=== PATIENT | male | born 1950 | race Caucasian/White ===

== ENCOUNTER 2021-05-03 15:08 | Emergency (ER) | payer MEDICARE, OTHER, SELFPAY ==
--- NOTE | ~2021-05-03 | XR_ITS ---
EXAMINATION: XR FINGER, LEFT CLINICAL INFORMATION: Laceration to the fourth digit. COMPARISON: None TECHNIQUE: Three views of the left hand fourth digit. FINDINGS: The fourth digit appears intact without acute fracture or dislocation. The soft tissues are unremarkable without without radiopaque foreign body. Mild to moderate interphalangeal and metacarpophalangeal degenerative joint changes are seen in the second and third digits. Moderate first carpometacarpal degenerative joint changes are seen as well. The carpal bones are normally aligned. The distal radius and ulna are intact. XR/XR finger LT min 2V IMPRESSION: 1. No significant acute abnormality in the fourth digit. 2. Degenerative joint changes most consistent with osteoarthritis.
[2021-05-03 15:41] VITALS: BP 170/83; PULSE 67; RESP 18; TEMP 36.6; O2SAT 97; BMI 27.1
--- NOTE | 2021-05-03 16:21 | ED.WOUNDLAC ---
HPI - Wound/Laceration General Chief Complaint: Wound/Laceration Stated Complaint: finger lac Time Seen by Provider: 05/03/21 16:16 History of Present Illness HPI narrative: Patient complains of laceration to left 4th finger, no numbness no weakness no tingling no other injury Related Data Allergies Allergy/AdvReac Type Severity Reaction Status Date / Time No Known Allergies Allergy Verified 05/03/21 15:44 Review of Systems Review of Systems: Positive for left 4th finger laceration Negatives are no numbness no weakness no tingling no joint pains no foreign body sensation no other injury Yes all other systems are reviewed and are negative [facility] Past Medical History Source: nursing notes reviewed Medical History (Updated 05/04/21 @ 00:01 by Background Damax) HTN (hypertension) Social History Social History Advance Directives: No Advance Directives Information Provided: No Physical Exam Vital Signs: Vital Signs: Last Vital Signs Temp 97.9 F 05/03/21 15:41 Pulse 67 05/03/21 15:41 Resp 18 05/03/21 15:41 BP 170/83 H 05/03/21 15:41 Pulse Ox 97 05/03/21 15:41 Body Mass Index 27.1 General appearance no acute distress Head is normocephalic atraumatic Neck is supple Respiratory no distress Extremities full range of motion x4 Left 4th finger has a 1.5 cm subcutaneous laceration to the middle phalanx, all tendon function is normal full extension and flexion, neurovascular intact distal Course Course Course Narrative: 1.5 cm left 4th finger laceration is cleansed and irrigated with normal saline Anesthesia is 6 cc of 1% lidocaine digital block No foreign body identified The wound is closed with 4x5.0 nylon sutures Bleeding is controlled and dressing is applied Discharge Plan Discharge Clinical Impression: Laceration Patient Disposition: Home, Self-Care Additional Instructions: Stitches out 7-10 days You get a tetanus shot Wash with soap and water every day and then reapply bandage when skin is completely dry, change any wet bandage Return any time for redness swelling pain any sign of infection any concerns Interventions: ED Discharge Assessment Last Done: 05/03/21 17:21 Discharge Date/Time: 05/03/21 17:21
[2021-05-03] MEDS: Diphth,Pertus(ACell),Tet Adult 0.5 ML SYRINGE IM (16:28)
[2021-05-03] MEDS: Lidocaine HCl 1 % MPF 5 ML VIAL SUBCUT ×2 (16:29→16:33)
== END 2021-05-03 17:21 | disposition home or self-care (01) ==
PROVIDERS: Emergency Provider Emergency Medicine; PCP Internal Medicine
DX: S61.215A Laceration without foreign body of left ring finger without damage to nail, initial encounter (principal); M79.645 Pain in left finger(s); X58.XXXA Exposure to other specified factors, initial encounter; Y93.9 Activity, unspecified; Y92.9 Unspecified place or not applicable; Y99.9 Unspecified external cause status
CPT/HCPCS: 73140; 90471; 90715; 99283; 99284

== ENCOUNTER 2023-12-22 15:17 | Outpatient (REF) | payer MEDICARE, OTHER, SELFPAY | END 2023-12-22 15:18 | disposition home or self-care (01) | LOC: HO.SH 15:17 | PROVIDERS: Visit Provider Internal Medicine | DX: Z01.118 Encounter for examination of ears and hearing with other abnormal findings (principal); H90.3 Sensorineural hearing loss, bilateral | CPT/HCPCS: 92557; 92567 ==

== ENCOUNTER → 2024-11-28 10:08 | Day surgery (SDC) | payer MEDICARE, OTHER, SELFPAY ==
--- OUTSIDE RECORDS SUMMARY | 2024-11-02 09:00 | XMS_ITS | Patient Health Record ---
Author Organization [facility] Address [address] [place] [address] Care Team Providers Care Distribution Sales Representative Name Role Phone William James MD Primary Care Provider UnavailHieu Santo Unavailable [phone] ALLERGIES No Known Allergies REASON FOR REFERRAL No Information MEDICATIONS Medication SIG (Take, Route, Frequency, Duration) Notes Start Date End Date Status Tamsulosin HCl 0.4 MG TAKE ONE CAPSULE B Y MOUTH DAILY AT BEDTIME Oral for 90 Active ZyrTEC Not-Taking tylenol Active buPROPion HCl ER (XL) 300 MG TAKE ONE TABLET BY MOUTH EVERY MORNING Oral for 90 Active Finasteride 5 MG Oral for 90 A ctive traZODone HCl 50 MG Oral for 90 Active SOCIAL HISTORY Sex Assigned At : Social History Observation Description Sex Assigned At Unknown Alcohol Screen Question Answer Notes Did you have a drink containing alcohol in the p ast year? No Points 0 Interpretation Negative PROBLEMS Problem Type ICD Code Onset Dates Problem Status W/U Status Risk SNOMED Code Notes Problem Encounter for screening for malignant neoplasm of colon (Z12.11) Active confirmed 171598683 Problem Encounter for screening for malignant neoplasm of rectum (Z12.12) Active confirmed Screening fo r malignant neoplasm of rectum (058910551) Problem Long-term use of aspirin therapy (Z79.82) Active confirmed 636541106 Problem Preprocedural examination (Z01.818) Active confirmed 74909146 Problem Change in bowel habits (R19.4) Active confirmed Change in bowel habit (19787312) Problem Colon cancer screening (Z12.11) Active confirmed Colon cancer screening (488805069) Problem Encounter for other preprocedural examination (Z01.818) Active confirmed Pre-procedure evaluation check (303966945) VITAL SIGNS Blood pressure diastolic 00 mm Hg 08/14/2024 Height 72 in 08/14/2024 Blood pressure systolic 00 mm Hg 08/14/2024 Weight 184 lbs 08/14/2024 BMI 24.95 kg/m2 08/14/2024 Encounters Encounter Location Date Provider Diagnosis [facility] [address] [place] [address] 08/14/2024 Hieu Manzanares Change in bowel habi ts R19.4 ; Colon cancer screening Z12.11 and Encounter for other preprocedural examination Z01.818 ASSESSMENTS Encounter Date Diagnosis Assessment Notes Treatment Notes Treatment Clinical Notes 08/14/2024 Colon cancer screening (ICD-10 - Z12.11) 08/14/2024 Change in bowel habits (ICD-10 - R19.4) 08/14/2024 Encounter for other preprocedural examination (ICD-10 - Z01.818) PLAN OF TREATMENT Future Test Test Name Order Date COLONOSCOPY 01/13/2016 COLONOSCOPY 08/14/2024 Next Appt Details Provider Name:Hieu Manzanares , 11/28/2024 11:40:00 AM, [address] [facility] , [place], [place], [id number], Insurance Providers Payer Name Payer Address Payer Phone Subscriber Number Group Number Insured Name Patient Relationship to Insured Coverage Start Date Coverage End Date MEDICARE OF [place] [address] [facility] [place] [address] [id number] JAYESH HERNADEZ Self - patient is the insured [facility] [address] [place] [address] [id number] JAYESH HERNADEZ Self - patient is the insured MEDICAL (GENERAL) HISTORY Medical History History ICD Code Colonoscopy 11-06-2002--WNL Depression Anxiety Denies VA,DM,CVA,Lung disease,renal dise ase Hypertension Seasonal allegeries Negative screening colonoscopy in 03/2016 Surgical History Surgery Date(Month/Year) Hiatal hernia surgery--1979 Both knee replacements--2005 and 2006 Both thumbs/arthritis surgery
--- OUTSIDE RECORDS SUMMARY | 2024-11-02 09:01 | XMS_ITS | Continuity of Care Document ---
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 Name Role Phone William James MD Primary Care Physician Encounter 10/17/24 - 10/18/[address] [address] Attending Physician: Not on Staff, Attending MD Referring Physician: Not on Staff, Referring MD Encounter Type: [facility] Allergies, Adverse Reactions, Alerts No Known Allergies Immunizations Given and Recorded Vaccine Date Status Refusal Reason influenza virus vaccine, inactivated 09/29/23 Give n influenza virus vaccine, inactivated 07/09/22 Marvel rded influenza virus vaccine, inactivated 07/20/21 Marvel rded influenza virus vaccine, inactivated 07/02/20 Marvel rded influenza virus vaccine, inactivated 07/05/19 Marvel rded influenza virus vaccine, inactivated 07/18/17 Marvel rded influenza virus vaccine, inactivated 07/06/16 Marvel rded pneumococcal 20-valent conjugate vaccine 1 03/24/23 Given SARS-CoV-2 (COVID-19) mRNA BNT-162b2 vac 08/15/21 Recorded SARS-CoV-2 (COVID-19) mRNA BNT-162b2 vac 12/15/20 Recorded SARS-CoV-2 (COVID-19) mRNA BNT-162b2 vac 11/21/20 Recorded tetanus/diphtheria/pertussis, acel(Tdap) 05/03/21 Recorded Influenza Virus Vaccine (oldterm) 06/12/19 Recorde d zoster vaccine, inactivated 03/31/18 Recorded zoster vaccine, inactivated 2 12/20/17 Recorded pneumococcal 23-valent vaccine 07/21/16 Given pneumococcal 13-valent vaccine 09/12/14 Recorded 1Result Comment: [id number] 2Location History: DR SOTO Medications barium sulfate 2% oral suspension See Instructions, Please dispense 2- 450ml bottles. Drink first bottle [address] scan. Drink second bottle [address] scan[address] # 2 each, 0 Refills, Maintenance, 01/31/24 3:21:00 PMEDT, [facility], Partial fill upon patient request if the prescription is for a schedule II opioid drug., Please dispense 2- 450ml bottles. ; Drink first bottle [address] scan. Drink second bottle [address] 177.7, cm, 12/30/23 9:08:00 EDT, Height, 86.5, kg, 04/03/22 21:43:00 EDT, Dry Weight Start Date: 01/31/24 Status: Ordered Quantity: 2.0 Unit: each Repeat number: 1 buPROPion 300 mg/24 hours (XL) oral tablet, extended release 1 tablet = 300 mg, By Mouth, Daily, # 30 tablet, 0 Refills, Maintenance, 02/25/21 11:48:00 AM EDT, ER Tablet, Partial fill upon patient request if the prescription is for a schedule II opioid drug. Start Date: 02/25/21 Status: Ordered Quantity: 30.0 Unit: tablet Repeat number: 1 finasteride 5 mg oral tablet 1 tablet = 5 mg, By Mouth, Daily, # 30 tablet, 0 Refills, Maintenance, 09/29/23 9:02:00 AM EST, Tablet, Partial fill upon patient request if the prescription is for a schedule II opioid drug. Start Date: 09/29/23 Status: Ordered Quantity: 30.0 Unit: tablet Repeat number: 1 Fish Oil By Mouth, 0 Refills, Maintenance, 11/09/18 1:58:40 PM EST Start Date: 11/09/18 Status: Ordered Repeat number: 1 Flonase 50 mcg/inh nasal spray 2 sprays, Nares, Both, Daily, 0 Refills, Maintenance, 08/13/19 10:51:00 AM EST, [place] Start Date: 08/13/19 Status: Ordered Repeat number: 1 FLUoxetine 40 mg oral capsule 1 capsule = 40 mg, By Mouth, Daily, 0 Refills, Maintenance, 03/10/22 10:08:00 AM EDT, Partial fill upon patient request if the prescription is for a schedule II opioid drug. Start Date: 03/10/22 Status: Ordered Repeat number: 1 Miscellaneous Rx 0 Refills, Maintenance, Vitamin B Complex, 12/30/23 9:13:00 AM EDT Start Date: 12/30/23 Status: Ordered Repeat number: 1 tamsulosin 0.4 mg oral capsule 0.4 mg, 1, capsule, By Mouth, Daily, # 30 capsule, Refills 0, Maintenance, 11/09/18 1:58:26 PM EST Start Date: 11/09/18 Status: Ordered Quantity: 30.0 Unit: capsule Repeat number: 1 traZODone 150 mg oral tablet 1 tablet = 150 mg, By Mouth, Daily at bedtime, # 30 tablet, 0 Refills, Maintenance, 11/09/18 1:57:40PM EST, Tablet Start Date: 11/09/18 Status: Ordered Quantity: 30.0 Unit: tablet Repeat number: 1 traZODone 50 mg oral tablet 180 each, 0 Refill(s), TAKE 1 OR 2 TABLETS BY MOUTH EVERY EVENING., Refills 0, 03/02/24 10:06:00 AM EDT, Partial fill upon patient request if the prescription is for a schedule II opioid drug. Start Date: 03/02/24 Status: Ordered Repeat number: 1 turmeric = 500 mg, By Mouth, Daily, 0 Refills, Maintenance, 12/30/21 9:53:00 AM EDT, Partial fill upon patient request if the prescription is for a schedule II opioid drug. Start Date: 12/30/21 Status: Ordered Repeat number: 1 Vitamin B12 0 Refills, Maintenance, 11/20/21 10:56:00 AM EST, Partial fill upon patient request if the prescription is for a schedule II opioid drug. Start Date: 11/20/21 Status: Ordered Repeat number: 1 Vitamin D3 2000 intl units oral capsule 1 capsule = 50 mcg, By Mouth, Daily, 0 Refills, Maintenance, 11/20/21 10:56:00 AM EST, Partial fill upon patient request if the prescription is for a schedule II opioid drug. Start Date: 11/20/21 Status: Ordered Repeat number: 1 Vitamin E By Mouth, Daily, 0 Refills, Maintenance, 11/09/18 1:58:34 PM EST Start Date: 11/09/18 Status: Ordered Repeat number: 1 Zinc = 140 mg, By Mouth, Daily, 0 Refills, Maintenance, 08/15/20 8:08:00 AM EST, Partial fill upon patient request if the prescription is for a schedule II opioid drug. Start Date: 08/15/20 Status: Ordered Repeat number: 1 ZyrTEC 10 mg oral tablet 1 tablet = 10 mg, By Mouth, Daily, 0 Refills, Maintenance, 12/30/23 9:13:00 AM EDT, Partial fill upon patient request if the prescription is for a schedule II opioid drug. Start Date: 12/30/23 Status: Ordered Repeat number: 1 Problem List Condition Confirmation Course Effective Dates Status H ealth Status Informant Recovering alcoholic Confirmed Active Allergic rhinitis Confirmed Active Anxiety Confirmed Active BPH (benign prostatic hyperplasia) Confirmed Active Bilateral hearing loss Confirmed Active Cataract 1 Confirmed Active Depression Confirmed Active GERD (gastroesophageal reflux disease) Confirmed Active H/O colonoscopy Confirmed Active Hyperlipidemia Confirmed Active HTN (hypertension) Confirmed Active Impaired fasting glucose Confirmed Active Low back pain Confirmed Active Pulmonary nodule Confirmed Active Osteoarthritis Confirmed Active Overweight Confirmed Active 1LEFT EYE Results Radiology Reports * Exam Date Time Procedure Performing Provider Status 10/17/24 10:43 AM MRI Cervical Spine W/O Contrast Auth (Verified) Notes: (MRI Cervical Spine W/O Contrast) Reason For Exam: radiculopathy left LUE numbness Intermittent Herniated Disc;radiculopathy left LUE numbness Intermittent Herniated Disc RESULT: MRI Cervical Spine W/O Contrast [facility] VISIT NUMBER :[id number] Patient Name: Jayesh Scott Date of : 1950 Date of Exam: 10-17-2024 Referring Physician: Sheela Coombs [address] [address] Exam: MR Cervical Spine (C-) CPT 72710 Room Description: [facility] 1.5 INDICATION: Left upper extremity numbness TECHNIQUE: Multiplanar multisequence MRI of the cervical spine was performed without IV contrast COMPARISON: No prior FINDINGS: There is mild retrolisthesis of C4 on C5, C5 on C6, and C6 on C7. The cervical spine alignment is otherwise maintained. The vertebral body heights are preserved. There are Modic type I endplate marrow changes at C4-C5. The bone marrow signal is otherwise unremarkable. The visualized brain and cervical cord have normal signal intensity. The prevertebral and paraspinal soft tissues are normal. The vertebral artery flow-voids are normal. The thyroid is within normal limits. The craniocervical junction and C1-C2 articulation are preserved. At C2-C3, there is no canal stenosis. There is minimal ligamentum flavum thickening and posterior endplate spurs. There are uncovertebral and facet joint spurs resulting in mild bilateral foraminal stenosis. At C3-C4, there is a minimal disc bulge without canal stenosis. There are uncovertebral and facet joint spurs resulting in moderate left and [id number] right foraminal stenosis. At C4-C5, there are posterior endplate spurs and a mild disc bulge flattening the ventral thecal sac with mild canal stenosis in conjunction with ligamentum flavum thickening. There are uncovertebral and facet joint spurs resulting in severe right and moderate to severe left foraminal stenosis. At C5-C6, there are posterior endplate spurs and a moderate broad-based central disc protrusion without canal stenosis. There is mild remodeling of the ventral cord. There are uncovertebral and facet joint spurs resulting in severe left and ynxm-[id number]-[id number] right foraminal stenosis. At C6-C7, there are posterior endplate spurs and a mild disc bulge as well as mild ligamentum flavum thickening resulting in mild to moderate canal stenosis. There is flattening of the ventral cord. There are uncovertebral and facet joint spurs resulting in severe bilateral foraminal stenosis. At C7-T1, there is no spinal canal stenosis. There is a minimal disc bulge. There are posterior endplate spurs with moderate to severe right and moderate left foraminal stenosis. IMPRESSION: No high-grade canal stenosis in the cervical spine. Multilevel foraminal stenoses as described level by level. No abnormal signal within the cervical cord. Electronically Signed By: Isamar Saunders MD Dictated By: Not on Staff , BEVERLEY CHAUDHARI Dictated Date/Time: 10/17/24 11:34 a Reviewed By: Not on Staff , BEVERLEY CHAUDHARI Signed By: Not on Staff , BEVERLEY CHAUDHARI Signed Date/Time: 10/17/24 11:34 am Transcribed By: TS Transcribed Date/Time: 10/17/24 11:34 am * Exam Date Time Procedure Performing Provider Status 10/17/24 10:43 AM MRI Brain W/O Contrast Au th (Verified) Notes: (MRI Brain W/O Contrast) Reason For Exam: TIA LUE And Left FAcial Numbness Infarction;TIA LUE And Left FAcial Numbness Infarction RESULT: MRI Brain W/O Contrast [facility] VISIT NUMBER :[id number] Patient Name: Jayesh Scott Date of : 1950 Date of Exam: 10-17-2024 Referring Physician: Sheela Coombs [address] [address] Exam: MR Brain (C-) CPT 75140 Room Description: [facility] 1.5 INDICATION: Left upper extremity and left facial numbness TECHNIQUE: Multiplanar multisequence MRI of the brain was performed without IV contrast COMPARISON: No prior FINDINGS: Mild T2 hyperintensities in the ventricular and subcortical white matter are present. The ventricles and sulci are mildly prominent. The midline the structures, main vascular flow voids, and basal cisterns are normal. There is no acute/subacute infarct or hemorrhage. The orbits and globes are unremarkable. The paranasal sinuses and mastoid air cells are clear. There is mild right bowing of the nasal septum. The extracranial soft tissues, calvarium, and skull base are normal. IMPRESSION: No acute/subacute infarct or hemorrhage. Mild nonspecific white matter T2 hyperintensities probably sequela of chronic microangiopathy. Mild global cerebral volume loss. Electronically Signed By: Isamar Saunders MD Dictated By: Not on Staff BEVERLEY MD Dictated Date/Time: 10/17/24 11:28 a Reviewed By: Not on Staff BEVERLEY MD Signed By: Not on Staff BEVERLEY MD Signed Date/Time: 10/17/24 11:28 am Transcribed By: LUCIANA Transcribed Date/Time: 10/17/24 11:28 am Social History Social History Type Response Smoking Status Never (less than 100 in lifetime) entered on: 11/09/18 Sex Sex Representation Male (finding) Patient Care team information Care Team Personnel Name: Stephie Bowden RN Position: [facility] RN Member Role: Primary Care Nurse Name: Mansi Montilla RN Position: S RN Member Role: Primary Care Nurse Name: William James MD Position: [facility] Physician - Primary Care Member Role: PCP Address: [address] [place] [address]- Telecom: Care Team Related Persons Name: FIEANYI SCOTT Name: KAYLI SCOTT Insurance Providers Guarantor name: JAYESH SCOTT Health Plan Information #: 1 Payer: MEDICARE PART B OUTPT Member Number: NA Policy Number: NA Group Number: NA Health Plan Information #: 2 Payer: FAMILIA PIERRE Member Number: NA Policy Number: NA Group Number: NA
--- OUTSIDE RECORDS SUMMARY | 2024-11-02 09:01 | XMS_ITS | Continuity of Care Document ---
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 Name Role Phone Erika CHAUDHARI, William Watson Primary Care Physician [phone] Encounter 10/10/24 - 10/17/24 [facility] [address], [address] [place] [address]- Attending Physician: Francisco Ibarra MD Admitting Physician: Francisco Ibarra MD Referring Physician: Francisco Ibarra MD Encounter Type: OutPatient One Time Allergies, Adverse Reactions, Alerts No Known Allergies [...] pneumococcal 13-valent vaccine 09/12/14 Recorded 1Result Comment: [id number] 2Location History: DR SOTO Medications barium sulfate [...] 0 Refills, Maintenance, 08/13/19 10:51:00 AM EST, [place] Start Date: 08/13/19 Status: Ordered Repeat number: [...] Exam Date Time Procedure Performing Provider Status 10/10/24 1:[address] Chest W/ Contrast Mario Kumar ; Auth (Verified) Notes: (CT Chest W/ Contrast) Reason For Exam: Lung nodule RESULT: CT Chest W/ Contrast CT Chest W/ Contrast INDICATION: Reason: Lung nodule TECHNIQUE: Helical CT scan of the chest with IV contrast, formatted in 3 planes. cc of was administered intravenously. Weight-based protocol was performed using automatic exposure control. COMPARISON: CT abdomen and pelvis of 09/18/2024 FINDINGS: Mascara Molder view findings, lines and tubes: None. Trachea and airways: Patent without evidence of tracheal or endobronchial lesion. Lungs and pleura: There is a 6 mm pleural-based parenchymal nodule in the right upper lobe (image 44 of series 2). There is an 8 mm stable pleural-based nodule in the right base (image 75 of series 2). There is mild particularity in the right middle lobe anteriorly probably fibrosis. Mild reticularartery be in the lateral base is also present probably fibrosis. There is no consolidation. No effusion or pneumothorax. Mediastinum and raul: No mass or hematoma. No mediastinal or hilar lymphadenopathy. No esophageal abnormality. Normal thyroid. Heart: Heart is normal in size. No pericardial effusion. Aorta: No aortic aneurysm. Pulmonary arteries: Normal caliber. No evidence of pulmonary embolism on this study performed without angiographic technique. Chest wall soft tissues: No acute abnormality. Diaphragm: Intact. Upper abdomen: No significant abnormality. Bones: No acute abnormality. IMPRESSION: 8 mm and 6 mm right pleural-based parenchymal nodules. If low risk for malignancy, followup CT at 3-6 months, then consider CT at 18-24 months and if unchanged no further follow-up. If high risk for malignancy, follow-up CT at 3-6 months, then at 18-24 months and if unchanged no further follow-up per Guidelines for Management of Incidental Pulmonary Nodules Detected on CT Images: From the Fleischner Society 2017. WSN: [id number] Ordering Physician: Francisco Ibarra Dictated By: Isamar Saunders MD Dictated Date/Time: 10/10/24 1:35 pm Reviewed By: Isamar Saunders MD Signed By: Isamar Saunders MD Signed Date/Time: 10/10/24 1:35 pm Transcribed By: VANESSA Transcribed Date/Time: 10/10/24 1:26 pm Social History Social History Type Response Smoking Status Never (less than 100 in lifetime) entered on: 11/09/18 Sex Sex Representation Male (finding) Patient Care team information Care Team Personnel Name: Stephie Bowden RN Position: [facility] RN Member Role: Primary Care Nurse Name: Mansi Montilla RN Position: [facility] RN Member Role: Primary Care Nurse Name: William James MD Position: [facility] Physician - Primary Care Member Role: PCP Address: [address] [place] [address]- Telecom: Care Team Related Persons Name: IFEANYI SCOTT Name: KAYLI SCOTT Insurance Providers Guarantor name: JAYESH SCOTT Health Plan Information #: 2 Payer: FAMILIA LAMBERT SUP Member Number: [id number] Policy Number: NA Group Number: NA Health Plan Information #: 1 Payer: MEDICARE PART B OUTPT Member Number: [id number] Policy Number: NA Group Number: NA
--- OUTSIDE RECORDS SUMMARY | 2024-11-02 09:01 | XMS_ITS | Continuity of Care Document ---
Author Organization [facility]tt lt Address [address] [place] [address]- Care Team Providers Care Gas Controller Name Role Phone William James MD Primary Care Physician [phone] Encounter [facility] Date(s): 10/19/24 - 10/26/24 [facility] Adult [address] [place] [address]- Attending Physician: William James MD Encounter Type: Office Visit Allergies, Adverse Reactions, Alerts No Known Allergies [...] pneumococcal 13-valent vaccine 09/12/14 Recorded 1Result Comment: [id number] 2Location History: DR SOTO Medications barium sulfate [...] 0 Refills, Maintenance, 08/13/19 10:51:00 AM EST, [place] Start Date: 08/13/19 Status: Ordered Repeat number: [...] Confirmed Active Overweight Confirmed Active 1LEFT EYE Vital Signs Most recent to oldest [Reference Range]: 1 Height 183 cm (10/19/24 12:59 PM) Weight 79.8 kg (10/19/24 12:59 PM) Oxygen Saturation [94-100 %] 97 % (10/19/24 12:59 PM) Pulse Rate [55-90 bpm] 62 bpm (10/19/24 12:59 PM) Body Mass Index [18.5-24.99 kg/m2] 23.83 kg/m2 (10/19/24 12:59 PM) Blood Pressure [90-138/55-84 mm Hg] 108/ 56mm Hg (10/19/24 12:59 PM) Temperature [96.8-100.4 DegF] 98.1 DegF (10/19/24 12:59 PM) Blood pressure sites Arm, left (10/19/24 12:59 PM) Temperature Route Oral (10/19/24 12:59 PM) Weight Obtained Via Standing scale (10/19/24 12:59 PM) Social History Social History Type Response Smoking Status Never (less than 100 in lifetime) entered on: 11/09/18 Sex Sex Representation Male (finding) Patient Care team information Care Team Personnel Name: Stephie Bowden RN Position: [facility] RN Member Role: Primary Care Nurse Name: Mansi Montilla RN Position: [facility] RN Member Role: Primary Care Nurse Name: William James MD Position: [facility] Physician - Primary Care Member Role: PCP Address: [address] [place] [id number] Telecom: Care Team Related Persons Name: IFEANYI SCOTT Name: KAYLI SCOTT Insurance Providers Guarantor name: JAYESH SCOTT Health Plan Information #: 2 Payer: [employer] Member Number: [id number] Policy Number: NA Group Number: NA Health Plan Information #: 1 Payer: MEDICARE PART B OUTPT Member Number: [id number] Policy Number: NA Group Number: NA
--- OUTSIDE RECORDS SUMMARY | 2024-11-02 09:01 | XMS_ITS ---
Author Organization [facility] Address [address] [place] [id number] Care Team Providers Care Hot Kettle Tender Name Role Phone William aJmes MD Primary Care Provider UnavailHieu Santo Unavailable [phone] ALLERGIES No Known Allergies REASON FOR VISIT Patient presents today for a COLON SCREENING MEDICATIONS Medication SIG (Take, Route, Frequency, Duration) Notes Start Date End Date Status ZyrTEC Not-Taking buPROPion HCl ER (XL) 300 MG TAKE ONE TABLET BY MOUTH EVERY MORNING Oral for 90 Active Finasteride 5 MG Oral for 90 A ctive traZODone HCl 50 MG Oral for 90 Active Tamsulosin HCl 0.4 MG TAKE ONE CAPSULE B Y MOUTH DAILY AT BEDTIME Oral for 90 Active tylenol Active SOCIAL HISTORY Sex Assigned At : Social History Observation Description Sex Assigned At Unknown Alcohol Screen Question Answer Notes Did you have a drink containing alcohol in the p ast year? No Points 0 Interpretation Negative PROBLEMS Problem Type ICD Code Onset Dates Problem Status W/U Status Risk SNOMED Code Notes Problem Change in bowel habits (R19.4) Active confirmed Change in bowel habit (53290980) Problem Colon cancer screening (Z12.11) Active confirmed Colon cancer screening (499577928) Problem Encounter for other preprocedural examination (Z01.818) Active confirmed Pre-procedure evaluation check (044718682) VITAL SIGNS BMI 24.95 kg/m2 08/14/2024 Blood pressure systolic 00 mm Hg 08/14/20 24 Blood pressure diastolic 00 mm Hg 024 Height 72 in 08/14/2024 Weight 184 lbs 08/14/2024 Encounters Encounter Location Date Provider Diagnosis [facility] [address] [place] [address] 08/14/2024 Hieu Manzanares Change in bowel habi ts R19.4 ; Colon cancer screening Z12.11 and Encounter for other preprocedural examination Z01.818 ASSESSMENTS Encounter Date Diagnosis Assessment Notes Treatment Notes Treatment Clinical Notes 08/14/2024 Change in bowel habits (ICD-10 - R19.4) 08/14/2024 Colon cancer screening (ICD-10 - Z12.11) 08/14/2024 Encounter for other preprocedural examination (ICD-10 - Z01.818) PLAN OF TREATMENT Future Test Test Name Order Date COLONOSCOPY 08/14/2024 Next Appt Details Follow Up: prn, Reason: Provider Name:Hieu Manzanares , 11/28/2024 11:40:00 AM, [address] [place] [address] , [place], [place], [id number], Progress Notes * Examination Category Sub-Category Detail Notes General Examination GENERAL APPEARANCE: pleasant , well nourished, well developed, in no acute distress HEAD: EYES: sclera non-icteric EARS: NOSE: THROAT: NECK/THYROID: no cervical lymphade nopathy, neck supple HEART: S1, S2 normal CHEST: LUNGS: clear to auscultatio n bilaterally ABDOMEN: normal bowel sounds, no guarding or rigidity, no guarding or rigidity, no masses palpable, soft, nontender, nondistended NEUROLOGIC: alert and oriented SKIN: nonjaundiced, no spi suzie angiomata EXTREMITIES: no edema PERIPHERAL PULSES: BACK: BREASTS: MUSCULOSKELETAL: MALE GENITOURINARY: LYMPH NODES: RECTAL EXAM: FEMALE GENITOURINARY: ORAL CAVITY: mucosa moist
--- OUTSIDE RECORDS SUMMARY | 2024-11-02 09:01 | XMS_ITS | Continuity of Care Document ---
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 Name Role Phone Erika CHAUDHARI, William Watson Primary Care Physician Encounter [facility] Date(s): 10/16/24 - 10/17/[address] [id number] Discharge Disposition: A-D/C Home Attending Physician: Julio Finley MD Admitting Physician: Malvin CHAUDHARI, Sheela Henriquez Referring Physician: Not on Staff, Referring MD Encounter Type: Disch Obv Allergies, Adverse Reactions, Alerts No Known Allergies [...] pneumococcal 13-valent vaccine 09/12/14 Recorded 1Result Comment: [id number] 2Location History: DR SOTO Medications barium sulfate [...] 0 Refills, Maintenance, 08/13/19 10:51:00 AM EST, [place] Start Date: 08/13/19 Status: Ordered Repeat number: [...] Date Time Procedure Performing Provider Status 10/17/24 9:10 AM US Duplex Cranial Ext Artery Bilat Steven Villarreal; Auth (Verified) Notes: (US Duplex Cranial Ext Artery Bilat) Reason For Exam: stenosis?;Other: RESULT: US Duplex Cranial Ext. Artery BiLat CAROTID DUPLEX ULTRASOUND INDICATION: Reason: Other:; stenosis?; Clinical Question(s): Stenosis; Order Comment: US Duplex Cranial Ext Artery Bilat Prep, Stenosis TECHNIQUE: The bilateral extracranial carotid artery system was evaluated using B-mode, color Doppler, and pulsed Doppler with spectral analysis. The NASCET definition of internal carotid artery stenosis was used. Velocity criteria are based on the Society of Radiologists in Ultrasound consensus panel recommendations 2003. COMPARISON: CTA neck surgery 10/16/2024. FINDINGS: Right carotid: Color and grayscale examination shows small amount of noncalcified plaque at the carotid bifurcation. On pulsed Doppler examination, the peak systolic velocity in the right internal carotid artery is 80 cm/sec, the corresponding end-diastolic velocity is 25 cm/s, and the systolic velocity ratio (ROLDAN/RCCA) is 1.0. Right vertebral artery: Normal antegrade flow. Right subclavian artery: Normal multiphasic flow. Left carotid: Color and grayscale examination shows no significant atherosclerotic plaque, intimal thickening or visible stenosis. On pulsed Doppler examination, the peak systolic velocity in the left internal carotid artery is 76cm/sec, the corresponding end-diastolic velocity is 12.5 cm/s, and the systolic velocity ratio (LICA/LCCA) is 1.1. Left vertebral artery: Normal antegrade flow. Left subclavian artery: Normal multiphasic flow. Incidental findings: None. IMPRESSION: RIGHT SIDE: 1. 1-49% stenosis of the right ICA. 2. The vertebral artery has normal antegrade flow. 3. The subclavian artery has normal multiphasic flow. LEFT SIDE: 1. Normal left internal carotid artery. 2. The vertebral artery has normal antegrade flow. 3. The subclavian artery has normal multiphasic flow. WSN: [id number] Ordering Physician: Sheela Coombs Dictated By: Liang Hayward MD Dictated Date/Time: 10/17/24 10:33 a Reviewed By: Liang Hayward MD Signed By: Liang Hayward MD Signed Date/Time: 10/17/24 10:33 am Transcribed By: VANESSA Transcribed Date/Time: 10/17/24 10:08 am * Exam Date Time Procedure Performing Provider Status 10/16/24 6:08 PM Chest 2 Views Frontal and Lat Santino Carvalho; Auth (Verified) Notes: (Chest 2 Views Frontal and Lat) Reason For Exam: Shortness of Breath RESULT: Chest 2 Views Frontal and Lat Chest 2 Views Frontal and Lat Reason: Shortness of Breath; Clinical Question(s): CHF COMPARISON: 2 priors with the most recent dated 08/13/2019. FINDINGS: LINES AND TUBES: None. LUNGS AND PLEURA: Clear lungs. Normal pulmonary vascularity. No pleural effusion. No pneumothorax. HEART, MEDIASTINUM AND JUANIS: Heart is normal in size. Normal mediastinal and hilar contour. BONES AND SOFT TISSUES: No acute abnormality. IMPRESSION: No acute abnormality. WSN: [id number] Ordering Physician: Zhang Avila Dictated By: Moody Alcazar MD, V Dictated Date/Time: 10/16/24 6:10 pm Reviewed By: Moody Alcazar MD, V Signed By: Moody Alcazar MD, V Signed Date/Time: 10/16/24 6:10 pm Transcribed By: VANESSA Transcribed Date/Time: 10/16/24 6:09 pm * Exam Date Time Procedure Performing Provider Status 10/16/24 4:[address] Angio Neck Hyperacute Stroke Pawan Enamorado; Zuri (Verified) Notes: (CT Angio Neck Hyperacute Stroke) Reason For Exam: Aneurysm, neck vessel(s);Other: RESULT: CT Angio Neck Hyperacute Stroke CT Angio Head Hyperacute Stroke, CT Angio Neck Hyperacute Stroke Hx of Present Illness: L facial numbness, L shoulder arm and hand numbness started 2 2.; Reason: Other:; Stroke; Clinical Question(s): Other:; Hematoma Aneurysm / Other: TECHNIQUE: CT angiogram of the head and neck was performed after bolus administration of intravenous contrast. 75 mL of Isovue 300 was administered intravenously. Coronal and sagittal MIP reformattedimages were obtained. Additional 3-D images were created on a separate workstation under concurrent supervision by the attending radiologist. All stenoses are measured using NASCET criteria. Weight-based protocol using automatic tube modulation was used to optimize exposure parameters. RADIATION DOSE PARAMETERS: CTDIvol Body: 14.44 mGy, DLP Body: 515 mGy*cm. COMPARISON: Noncontrast CT head performed concurrently. FINDINGS: CTA OF THE NECK: Arch: There is a three vessel aortic arch. The origins of the supra aortic vessels are patent. Right carotid system: The common carotid and cervical internal carotid arteries are patent. There is noncalcified atherosclerotic plaque at the carotid bifurcation, but no ICA stenosis (0%) by NASCETcriteria. Left carotid system: The common carotid and cervical internal carotid arteries are patent. No stenosis (0%) by NASCET criteria. There is a right-dominant vertebral artery system. Right vertebral: Patent. Left vertebral: There is moderate to severe narrowing at the origin of the left vertebral artery due to noncalcified plaque. Beyond this, the extracranial vertebral is normal in caliber. Other: Soft tissues and bones: No evidence of lymphadenopathy or mass. The thyroid is unremarkable. Visualized lung apices are clear. Multilevel degenerative changes of the spine are noted, without acute osseous abnormality. CTA OF THE HEAD: Anterior circulation: Minimal calcification is seen along the intracranial ICAs without significantnarrowing. The anterior cerebral arteries are patent and normal in caliber. Bilateral M1 and proximal M2 branches are patent and normal in caliber. Posterior circulation: The vertebral arteries, basilar artery, superior cerebellar arteries, and posterior cerebral arteries are patent with origin of the left AGENCY SALES DIRECTOR. Veins: Nondominant lateral left transverse sinus, sigmoid sinus, and jugular bulb are not opacified, which appears related to the phase of injection. Remaining major dural venous sinuses are patent. Other: Soft tissues and bones: No midline shift or effacement of the basal cisterns. No space-occupying hemorrhage. No acute territorial loss of greenwood-white matter differentiation. Orbits are unremarkable. No significant opacification in the paranasal sinuses or mastoid air cells. IMPRESSION: 1. No proximal occlusion or high grade stenosis in the [place] of [place]. 2. Moderate to severe narrowing of the left vertebral artery origin. 3. No significant stenosis in the cervical carotids. WSN: [id number] Ordering Physician: Zhang Avila Dictated By: Lynsey Murillo MD Dictated Date/Time: 10/16/24 5:16 pm Reviewed By: Lynsey Murillo MD Signed By: Lynsey Murillo MD Signed Date/Time: 10/16/24 5:16 pm Transcribed By: VANESSA Transcribed Date/Time: 10/16/24 4:34 pm * Exam Date Time Procedure Performing Provider Status 10/16/24 4:[address] Angio Head Hyperacute Stroke Pawan Enamorado; Zuri (Verified) Notes: (CT Angio Head Hyperacute Stroke) Reason For Exam: Stroke;Other: RESULT: CT Angio Head Hyperacute Stroke CT Angio Head Hyperacute Stroke, CT Angio Neck Hyperacute Stroke Hx of Present Illness: L facial numbness, L shoulder arm and hand numbness started 2 2.; Reason: Other:; Stroke; Clinical Question(s): Other:; Hematoma Aneurysm / Other: TECHNIQUE: CT angiogram of the head and neck was performed after bolus administration of intravenous contrast. 75 mL of Isovue 300 was administered intravenously. Coronal and sagittal MIP reformattedimages were obtained. Additional 3-D images were created on a separate workstation under concurrent supervision by the attending radiologist. All stenoses are measured using NASCET criteria. Weight-based protocol using automatic tube modulation was used to optimize exposure parameters. RADIATION DOSE PARAMETERS: CTDIvol Body: 14.44 mGy, DLP Body: 515 mGy*cm. COMPARISON: Noncontrast CT head performed concurrently. FINDINGS: CTA OF THE NECK: Arch: There is a three vessel aortic arch. The origins of the supra aortic vessels are patent. Right carotid system: The common carotid and cervical internal carotid arteries are patent. There is noncalcified atherosclerotic plaque at the carotid bifurcation, but no ICA stenosis (0%) by NASCETcriteria. Left carotid system: The common carotid and cervical internal carotid arteries are patent. No stenosis (0%) by NASCET criteria. There is a right-dominant vertebral artery system. Right vertebral: Patent. Left vertebral: There is moderate to severe narrowing at the origin of the left vertebral artery due to noncalcified plaque. Beyond this, the extracranial vertebral is normal in caliber. Other: Soft tissues and bones: No evidence of lymphadenopathy or mass. The thyroid is unremarkable. Visualized lung apices are clear. Multilevel degenerative changes of the spine are noted, without acute osseous abnormality. CTA OF THE HEAD: Anterior circulation: Minimal calcification is seen along the intracranial ICAs without significantnarrowing. The anterior cerebral arteries are patent and normal in caliber. Bilateral M1 and proximal M2 branches are patent and normal in caliber. Posterior circulation: The vertebral arteries, basilar artery, superior cerebellar arteries, and posterior cerebral arteries are patent with origin of the left AGENCY SALES DIRECTOR. Veins: Nondominant lateral left transverse sinus, sigmoid sinus, and jugular bulb are not opacified, which appears related to the phase of injection. Remaining major dural venous sinuses are patent. Other: Soft tissues and bones: No midline shift or effacement of the basal cisterns. No space-occupying hemorrhage. No acute territorial loss of greenwood-white matter differentiation. Orbits are unremarkable. No significant opacification in the paranasal sinuses or mastoid air cells. IMPRESSION: 1. No proximal occlusion or high grade stenosis in the [place] of [place]. 2. Moderate to severe narrowing of the left vertebral artery origin. 3. No significant stenosis in the cervical carotids. WSN: [id number] Ordering Physician: Zhang Avila Dictated By: Lynsey Murillo MD Dictated Date/Time: 10/16/24 5:16 pm Reviewed By: Lynsey Murillo MD Signed By: Lynsey Murillo MD Signed Date/Time: 10/16/24 5:16 pm Transcribed By: VANESSA Transcribed Date/Time: 10/16/24 4:34 pm * Exam Date Time Procedure Performing Provider Status 10/16/24 4:[address] Head-Hyper Acute Stroke Giovanny Enamorado darriusnahun; Auth (Verified) Notes: (CT Head-Hyper Acute Stroke) Reason For Exam: Neuro deficit, acute, stroke suspected;Other: RESULT: CT Head-Hyper Acute Stroke CT Head-Hyper Acute Stroke INDICATION: Hx of Present Illness: L facial numbness, L shoulder arm and hand numbness started 2 2.; Reason: Other:; Neuro deficit, acute, stroke suspected; Clinical Question(s): Other:; Hematoma Infarction TECHNIQUE: Noncontrast head CT using axial technique and reconstructed in axial and coronal planes.Iterative reconstruction techniques are used to optimize dose and image quality. COMPARISON: MRI brain 07/20/2016 FINDINGS: Chicken Dresser view findings, lines and tubes: None. BRAIN AND EXTRA-AXIAL SPACES: No parenchymal hemorrhage, midline shift, or mass effect. Greenwood-white matter differentiation is wellpreserved. No acute infarct. Mild prominence of the ventricles and sulci consistent with parenchymal volume loss. Mild low-density white matter changes. No subarachnoid hemorrhage. No subdural or epidural collection. CALVARIUM, SKULL BASE, AND SOFT TISSUES: No fractures or suspicious bony lesions. The paranasal sinuses and mastoid air cells are clear. Visualized orbits and globes are intact. The extracranial soft tissues are unremarkable. IMPRESSION: No evidence of acute intracranial abnormality. WSN: [id number] Ordering Physician: Zhang Avila Dictated By: Moisés Hickman MD Dictated Date/Time: 10/16/24 4:09 pm Reviewed By: Moisés Hickman MD Signed By: Moisés Hickman MD Signed Date/Time: 10/16/24 4:09 pm Transcribed By: VANESSA Transcribed Date/Time: 10/16/24 4:07 pm Vital Signs Most recent to oldest [Reference Range]: 1 2 3 Height 183 cm (10/16/24 10:55 PM) 183 cm (10/16/24 6:02 PM) 183 cm (10/16/24 4:19 PM) Weight 81.7 kg (10/16/24 10:55 PM) 82.9 kg (10/16/24 6:02 PM) 82.9 kg (10/16/24 4:19 PM) Oxygen Saturation [94-100 %] 96 % (10/17/24 11:00 AM) 97 % (10/17/24 8:00 AM) 96 % (10/16/24 6:02 PM) Pulse Rate [55-90 bpm] 56 bpm (10/17/24 11:00 AM) 59 bpm (10/17/24 8:00 AM) 56 bpm (10/16/24 10:55 PM) Body Mass Index [18.5-24.99 kg/m2] 24.4 kg/m2 (10/16/24 10:55 PM) 24.75 kg/m2 (10/16/24 6:02 PM) 24.75 kg/m2 (10/16/24 4:19 PM) Blood Pressure [90-138/55-84 mm Hg] 136/71mm Hg (10/17/24 11:00 AM) 121/69mm Hg (10/17/24 8:00 AM) 129/64mm Hg (10/16/24 10:55 PM) Respiratory Rate [16-30 br/min] 16 br/min (10/17/24 11:00 AM) 16 br/min (10/17/24 8:00 AM) 18 br/min (10/16/24 10:55 PM) Temperature [96.8-100.4 DegF] 98.1 DegF (10/17/24 11:00 AM) 98.7 DegF (10/17/24 8:00 AM) 97.9 DegF (10/16/24 10:55 PM) Mode of Delivery (Oxygen) Room air (10/17/24 11:00 AM) Room air (10/17/24 8:00 AM) Room air (10/16/24 6:02 PM) Blood pressure sites Arm, right (10/17/24 11:00 AM) Arm, right (10/17/24 8:00 AM) Arm, right (10/16/24 10:55 PM) Temperature Route Oral (10/17/24 11:00 AM) Oral (10/17/24 8:00 AM) Oral (10/16/24 10:55 PM) Dry Weight 81.7 kg (10/16/24 10:55 PM) 82.9 kg (10/16/24 6:02 PM) 82.9 kg (10/16/24 4:19 PM) Weight Obtained Via Standing scale (10/16/24 3:48 PM) Dry Weight Obtained Via Standing scale (10/16/24 3:48 PM) Social History Social History Type Response Smoking Status Never (less than 100 in lifetime) entered on: 11/09/18 Sex Sex Representation Male (finding) Admission evaluation note * Malvin CHAUDHARI, Sheela Henriquez: PERFORM Event Display: Admission Note Authored Date: [id number] Patient: ??JAYESH SCOTT ? Age:??74 Years?Sex:??Male?:??1950?? History of Present Illness 73-year-old male with past medical history of hyperlipidemia, BPH, depression, hypertension, anxiety who presented to ED with left upper extremity and facial numbness. ?? Patient presented with??2 days still left upper extremity and facial numbness.?May be very mild weakness on the left upper extremity??but his symptoms are intermittent??that started last Tuesday.?Also reports having??minutes when he had a CT scan??he associates it with position change.?He has been suffering from the left shoulder arthritis which he had??steroid injection??last .?Although??his shoulder pain is slightly getting better.?Patient denies significant neck pain, headache, chest pain, palpitation, shortness of breath, lower extremity weakness, dysuria,??urinary or stool incontinence. ?? 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 ?? ED course remarkable for BP 150/90, on room air saturating 95, afebrile, heart rate 65 CBC unremarkable BMP grossly unremarkable High sensitive troponin 12 Patient was given aspirin [address] head hyperacute without acute abnormality CT angio head and neck 1. No proximal occlusion or high grade stenosis in the [place] of [place]. 2.?? Moderate to severe narrowing of the left vertebral artery origin. 3.?? No significant stenosis in the cervical carotids. Review of Systems None except as above Objective Vital Signs?? Temperature: 98.1 DegF (10/16/24 16:19:00) Temperature Route: Oral (10/16/24 16:19:00) Pulse Rate: 75 bpm (10/16/24 18:02:00) Respiratory Rate: 18 br/min (10/16/24 18:02:00) Systolic Blood Pressure:??179 mm Hg??High (10/16/24 18:02:00) Diastolic Blood Pressure: 65 mm Hg (10/16/24 18:02:00) Blood pressure sites: Arm, left (10/16/24 18:02:00) Mean Arterial Pressure: 103 mm Hg (10/16/24 18:02:00) Pulse Pressure: 114 mm Hg (10/16/24 18:02:00) Oxygen Saturation: 96 % (10/16/24 18:02:00) Mode of Delivery (Oxygen): Room air (10/16/24 18:02:00) ?? Physical Exam Gen-slightly restless/anxious , not in acute distress,comfortably lying on bed, speaking in full sentences. HEENT- Normocephalic, Atraumatic, No pallor, icterus Neck-supple, no JVD Heart-S1S2(+),??regular, no murmurs. lungs- Clear, b/l air entry, no wheezing. Abdomen-soft, nontender,nondistended,??bowel sounds present, No guarding. Extremities-pulses palpable. No pedal edema. No calf tenderness. Neurological- AAO??3. No gross focal neurological deficits noted. Psychiatric-patient???s mood is stable. Assessment/Plan Diagnoses BPH (benign prostatic hyperplasia) ??(N40.0) Depression with anxiety ??(F41.8) Left upper extremity numbness ??(R20.0) Stenosis of left vertebral artery ??(I65.02) 1. ??Left facial numbness ??(R20.0) ?? Assessment:??73-year-old male with past medical history of hyperlipidemia, BPH, depression, hypertension, anxiety who presented to ED with left upper extremity and facial numbness. ?? BPH (benign prostatic hyperplasia) (N40.0):??Continue tamsulosin and finasteride ?? Depression with anxiety (F41.8):??Patient takes??bupropion,??fluoxetine, trazodone He reported taking trazodone to 250 mg which is above??the??recommended dose,??will continue 150 mgdaily ?? 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 Patient presented with??left upper extremity??numbness??as well as the left facial numbness??also questions may be very mild weakness??although no remarkable physical??exam findings.?He has been having the symptoms intermittently since last??Tuesday, he is OOW for??tPA.?Patient was as ymptomatic on my exam,??initial CT head without acute stroke.??CT angio head and neck showed moderate to severe narrowing of the left vertebral artery origin. Patient passed bedside swallow eval. ?? Plan: Patient was loaded with aspirin, continue 81 mg daily Neurochecks every 4 hours conveyor monitor?? Duplex??carotid bilateral ordered MRI brain and cervical??without contrast ordered Appreciate neurology follow-up and recommendations A1c and lipid panel added on ?? VTE Prophylaxis:??Lovenox subcu ?VTE Prophylaxis Assessment:??VTE Prophylaxis Ordered ?? Discharge Planning:??Pending clinical course ?? Ongoing Medical Necessity:??Left upper extremity and facial numbness,???TIA,??CVA rule out ?? Code Status:??Full code ?Order Code Status:??Code Status Ordered ?? Pt is seen on 10/16/2024 ?? I spent a total of??60 minutes in patient care that includes??reviewing the chart and medical records, speaking with the patient, examining the patient, interpreting labs/imaging/ekg, formulating anddiscussing the treatment plan, counseling the patient, placing orders, communicating with??consultants and nurses??and documenting the encounter. ?? Please note that I have used Whistleation system to??transcribe??this note and it may contain unintentional errors. Please feel free to contact me for any clarification. ?? Estimated Discharge Date ? Histories Allergies Allergies ?(Active and Proposed Allergies Only) NKA? (Severity: Unknown severity, Onset: Unknown) ? Past Medical History/Problem List Active Problems(16) Allergic rhinitis Anxiety Bilateral hearing loss BPH (benign prostatic hyperplasia) Cataract Depression GERD (gastroesophageal reflux disease) H/O colonoscopy HTN (hypertension) Hyperlipidemia Impaired fasting glucose Low back pain Osteoarthritis Overweight Pulmonary nodule Recovering alcoholic ? Past Surgical History Hiatal hernia History of bilateral total knee replacement Nasal polypectomy Deviated nasal septum ? Social History Alcohol Details:??Use: Past. 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 Exercise Details:??Self assessment: Good condition. ??Regular exercise: No. Home/Environment Details:??Other: [place]. Details:??Living situation: Home/Independent. ??Lives with: Spouse. Details:??Living situation: Home/Independent. ??Lives with: Spouse. Nutrition/Health Details:??Diet: Regular. ??Caffeine intake amount: 1 cup of coffee qd. Other Details:??Name: Davidson Fernandez. Substance Abuse Details:??Use: Never. Tobacco Details:??Use: Never (less than 100 in lifetime). ? Family History Mother??(): Hypertension; Osteoporosis ? Medications Home Medications Barium Sulfate (barium sulfate 2% oral suspension)??See Instructions Please dispense 2- 450ml bottles. Drink first bottle [address] scan.Drink second bottle [address] scan. BuPROpion (buPROPion 300 mg/24 hours (XL) oral tablet, extended release)??1 tab(s) 300 Milligram ByMouth Daily Cetirizine (ZyrTEC 10 mg oral tablet)??1 tab(s) 10 Milligram By Mouth Daily Cholecalciferol (Vitamin D3 2000 intl units oral capsule)??1 capsule 50 Microgram By Mouth Daily Finasteride (finasteride 5 mg oral tablet)??1 tab(s) 5 Milligram By Mouth Daily Fluoxetine (FLUoxetine 40 mg oral capsule)??1 capsule 40 Milligram By Mouth Daily Fluticasone Nasal (Flonase 50 mcg/inh nasal spray)??2 spray(s) Nares, Both Daily Miscellaneous Rx??Vitamin B Complex Roberts-3 Polyunsaturated Fatty Acids (Fish Oil)??By Mouth Tamsulosin (tamsulosin 0.4 mg oral capsule)??0.4 Milligram 1 capsule By Mouth Daily Trazodone (traZODone 150 mg oral tablet)??1 tab(s) 150 Milligram By Mouth Daily at bedtime Trazodone (traZODone 50 mg oral tablet)??180 each, 0 Refill(s), TAKE 1 OR 2 TABLETS BY MOUTH EVERY EVENING. turmeric??500 Milligram By Mouth Daily Vitamin E??By Mouth Daily Zinc Sulfate (Zinc)??140 Milligram By Mouth Daily ? Inpatient Medications Medications (17) Active SCHEDULED: (9) Aspirin 81 mg EC Tablet (aspirin 81 mg oral delayed release tablet) ??81 mg, By Mouth, Daily BuPROPion XL 150 mg Tablet (BuPROpion XL Tablet) ??300 mg, By Mouth, Daily Enoxaparin 40 mg Inj (Enoxaparin Inj) ??40 mg 0.4 mL, Subcutaneous Injection, Daily Finasteride 5 mg Tablet (finasteride 5 mg oral tablet) ??5 mg, By Mouth, Daily Fluoxetine 20 mg Capsule (FLUoxetine 20 mg oral capsule) ??40 mg, By Mouth, Daily NaCl 0.9% Flush 3ml (NaCL 0.9% Flush) ??3 mL, IV Push, Every 8 hours Tamsulosin 0.4 mg Capsule (tamsulosin 0.4 mg oral capsule) ??0.4 mg, By Mouth, Daily Trazodone 50 mg Tablet (traZODone 50 mg oral tablet) ??150 mg, By Mouth, Daily at bedtime Vitamin D 1000 IU Tablet (cholecalciferol 1000 intl units oral tablet) ??2,000 International_Units,By Mouth, Daily CONTINUOUS: (0) PRN: (8) Acetaminophen 325 mg Tablet (Acetaminophen Tablet) ??650 mg, By Mouth, Every 4 hours Dextromethorphan-Guaifenesin 20 mg-200 mg/10 mL Liqu UD (Robitussin DM Liquid) ??10 mL, By Mouth, Every 4 hours Docusate Sodium 100 mg Capsule (Docusate Sodium Capsule) ??100 mg 1 capsule, By Mouth, 2 times a day Melatonin 3 mg Tablet (Melatonin Tablet) ??3 mg, By Mouth, Daily at bedtime NaCl 0.9% Flush 3ml (NaCL 0.9% Flush) ??3 mL, IV Push, Every 8 hours Polyethylene Glycol 17 Gm Powder (MiraLax Powder) ??17 Gm 1 pack/packet, By Mouth, Daily Senna Tablet ??8.6 mg 1 tablet, By Mouth, 2 times a day Simethicone 80 mg Chewable Tablet (Simethicone Tablet) ??80 mg, Chew, 3 times a day ? Results Recent Labs BLOOD COUNT & DIFF WBC 8.1 k/mm3 ()?? 10/16/2024 16:03 RBC 5.02 m/mm3 ()?? 10/16/2024 16:03 Hgb 16.6 Gm/dL ()?? 10/16/2024 16:03 Hct 45.9 % ()?? 10/16/2024 16:03 MCV 91.4 femtoliters ()?? 10/16/2024 16:03 MCH 33.1 pg ()?? 10/16/2024 16:03 MCHC 36.2 Gm/dL ()?? 10/16/2024 16:03 Platelet Count 278 k/mm3 ()?? 10/16/2024 16:03 RDW-SD 38.6 femtoliters ()?? 10/16/2024 16:03 MPV 8.7 femtoliters (Low)?? 10/16/2024 16:03 Nucleated RBC (Automated) 0.0 #/100 WBC'S ()?? 10/16/2024 16:03 Abs. NRBC 0.0 k/mm3 ()?? 10/16/2024 16:03 Abs. Neut 5.1 k/mm3 ()?? 10/16/2024 16:03 Abs. Lymph 1.9 k/mm3 ()?? 10/16/2024 16:03 Abs. Stanley 1.0 k/mm3 ()?? 10/16/2024 16:03 Abs. Eo 0.1 k/mm3 ()?? 10/16/2024 16:03 Abs. Baso 0.1 k/mm3 ()?? 10/16/2024 16:03 Neut % 62.1 % ()?? 10/16/2024 16:03 Lymph % 23.1 % ()?? 10/16/2024 16:03 Stanley % 12.1 % (High)?? 10/16/2024 16:03 Eos % 1.6 % ()?? 10/16/2024 16:03 Baso % 0.9 % ()?? 10/16/2024 16:03 Imm Gran 0.2 % ()?? 10/16/2024 16:03 Abs. Imm Gran 0.0 k/mm3 ()?? 10/16/2024 16:03 ?? CARDIAC High Sensitivity Troponin (HSTnT) 12 ng/L ()?? 10/16/2024 16:03 ?? CHEM GENERAL Sodium 139 mmol/L ()?? 10/16/2024 16:03 Potassium 4.3 mmol/L ()?? 10/16/2024 16:03 Chloride 99 mmol/L ()?? 10/16/2024 16:03 Bicarbonate Level 25 mmol/L ()?? 10/16/2024 16:03 Anion Gap 15 mmol/L ()?? 10/16/2024 16:03 Glucose Level 93 mg/dL ()?? 10/16/2024 16:03 Glucose, POC 85 mg/dL ()?? 10/16/2024 16:00 BUN 30 mg/dL (High)?? 10/16/2024 16:03 Creatinine-Blood 0.95 mg/dL ()?? 10/16/2024 16:03 Estimated GFR Creatinine 85 ML/MIN/1.73 M2 ()?? 10/16/2024 16:03 Calcium 9.3 mg/dL ()?? 10/16/2024 16:03 Protein, Total 7.2 Gm/dL ()?? 10/16/2024 16:03 Albumin 4.6 Gm/dL ()?? 10/16/2024 16:03 AG Ratio 1.8 ()?? 10/16/2024 16:03 Alkaline Phosphatase 110 units/L ()?? 10/16/2024 16:03 AST (SGOT) 17 units/L ()?? 10/16/2024 16:03 ALT (SGPT) 17 units/L ()?? 10/16/2024 16:03 Bilirubin, Total 0.5 mg/dL ()?? 10/16/2024 16:03 ?? HEME OTHER Hold Blue Top SPECIMEN DISCARDED AFTER 4 HOURS. ()?? 10/16/2024 16:03 ?? MISC. CHEMISTRY Hold Gel Top SPECIMEN DISCARDED AFTER 1 WEEK ()?? 10/16/2024 16:03 Hold Greenwood Top SPECIMEN DISCARDED AFTER 1 WEEK ()?? 10/16/2024 16:03 ?? URINE OTHER Est Creatinine Clearance 76.12 mL/min ()?? 10/16/2024 16:26 ? Abnormal Labs ?? BLOOD COUNT & DIFF Abs. NRBC?0.0 k/mm3 ()?10/16/2024 16:03 Abs. Imm Gran?0.0 k/mm3 ()?10/16/2024 16:03 Imm Gran?0.2 % ()?10/16/2024 16:03 MPV?8.7 femtoliters (Low)?10/16/2024 16:03 Stanley %?12.1 % (High)?10/16/2024 16:03 Nucleated RBC (Automated)?0.0 #/100 WBC'S ()?10/16/2024 16:03 RDW-SD?38.6 femtoliters ()?10/16/2024 16:03 ?? CARDIAC High Sensitivity Troponin (HSTnT)?12 ng/L () ?10/16/2024 16:03 ?? CHEM GENERAL AG Ratio?1.8 ()?10/16/2024 16:03 BUN?30 mg/dL (High)?10/16/2024 16:03 Estimated GFR Creatinine?85 ML/MIN/1.73 M2 ()?10/16/2024 16:03 ?? HEME OTHER Hold Blue Top?SPECIMEN DISCARDED AFTER 4 HOURS. ()?10/16/2024 16:03 ?? MISC. CHEMISTRY Hold Gel Top?SPECIMEN DISCARDED AFTER 1 WEEK ()?10/16/2024 16:03 Hold Greenwood Top?SPECIMEN DISCARDED AFTER 1 WEEK ()?6:03 ?? Note: Critical results are displayed in red. ? Urinalysis Est Creatinine Clearance: 76.12 mL/min (16:26) ?? Blood Gases?? No qualifying data available. ? Hospital Progress note * Cecily Lebron RN: PERFORM, SIGN, VERIFY Event Display: Progress Note Hospital Authored Date: Patient: JAYESH SCOTT Age: 74 years Sex: Male : 1950 Associated Diagnoses: None Author: Cecily Lebron RN Findings Problem Related to Alteration in Neurological : Alteration in Neurological Function/new 10/17/2024 8:00 EST Alteration in Neuro status Related to Acute Stroke (CVA), Other: CVA/Stroke r/o Goals & Outcomes, Neurological Lab studies/diagnostic tests within pt specific limits, Pt is safe with transfers & activities, Pt will be hemodynamically stable, Pt will be Neurologically stable, Pt will maintain intact skin integrity, Pt will remain free from injury, Pt will resume/maintain adequate cardiac output, Pt will state importance of adhering to medication regime, Pt/caregiver will receive psychosocial support as needed, Pt/caregiver will state strategies to reduce risk factors, Pt/caregiver will state understanding of disease process, Pt/caregiver will state understanding of plan/goals of care, Pt will demonstrate safe transfers, Pt will be without signs of aspiration Interventions, Neurological Assess/monitor neurologic status, Assess/monitor VS per unit standards & prn, Collaborate with provider re: medication regime, Assess/monitor facial symmetry and tongue deviation, Communicate oral intake orders/status to pt/s.o, Consult Speech Therapy as needed, DVT prophylaxis as ordered, Maintain oral suction at bedside, Teach Pt/caregiver how to transfer position safely, Teach Pt/caregiver signs indicative of stroke Goals/Interventions, Neurological Yes Neurological, Problem Start 10/17/2024 8:00 Reviewed plan with, Neurological Patient Patient Progression, Neurological Pt progressing according to plan . Alteration in Safety : Alteration in Safety/new 10/17/2024 8:00 EST Alteration in Safety Related to Other: CVA r/o, weakness Goals & Outcomes, Safety Pt/caregiver will state understanding of plan/goals of care, Pt will remain safe & injury free, Pt/caregiver will be offered appropriate resources & support Interventions, Safety Provide teaching as needed Goals/Interventions, Safety Yes Safety, Problem Start 10/17/2024 8:00 Reviewed plan with, Safety Patient Patient Progression, Safety Plan Initiation Comment: Safety fall prevention interventions and education. purposeful rounding. . Falls Risk Assessment : Falls Data 10/17/2024 8:00 EST Fall Elimination No impairment Fall Agitation/Anxiety/Depression No impairment Fall Related Sign/Symptom/Condition None Fall Cognitive Limitations No impairment Fall Sensory and Physical Function Requires Staff Assistance with Transfer Plan: Fall Sensory and Physical Function Encourage safe activities to maintain strength & mobility, Ask family to encourage safe activities, Monitor patient's progress with physical activities Fall High Risk for Injury None of the above Total Falls Risk Score 3 Fall Risk Level Low Risk Falls Prevention Plan for Low Risk Bed in lowest locked position, Place personal care items & call weir within reach, Instruct patient/family to request assistance with ambulatio, Instruct patient/family not to get up without assistance, Supervise the patient when ambulating or making transfers, Check that needs are met to minimize attempts to get up, Hourly rounds, Ensure safe & uncluttered environment, Communicate falls risk to all providers, Consider consult with Geriatric Team as appropriate . Nursing Data Cardiac Data. : Cardiac Data. 10/17/2024 8:00 EST Nail Bed Color, Fingers [place] Skin Temperature Upper Extremities Warm Skin Temperature Lower Extremities Warm Heart Sounds S1, S2 Heart Rhythm Regular Pacemaker No Cardiac Rhythm Normal sinus rhythm, Sinus bradycardia Cardiac Rhythm Normal sinus rhythm, Sinus bradycardia child monitor Yes Cardiovascular WNL Cardiovascular WNL except 10/17/2024 6:39 EST Hgb 15.8 Gm/dL Hct 44.0 % . IV Lines. : IV Lines. 10/17/2024 14:00 EST Right Antecubital 20 gauge Peripheral IV Activity: Discontinue Peripheral IV Assess Compare Touch: A/C/T Done, line D/C'd and or pt discharged Peripheral IV D/C Date/Time: 10/17/2024 14:40 Peripheral IV D/C Reason: Discontinued treatment complete Peripheral IV Post-Removal: Dry sterile dressing applied . Neurological Data. : Neurological Data. 10/17/2024 12:00 EST Neurological Assessment Status Unchanged from recorder's assessment 10/17/2024 8:00 EST Tongue Disposition Midline Neurological Symptoms Numbness Level of Consciousness Full Consciousness Orientated to person, place, time Person, Place, Time, Event Orientated to person, place, time Person, Place, Time, Event Hallucinations None Facial Symmetry Symmetric Facial Symmetry Intact Characteristics of Speech Clear and normal Characteristics of Speech Clear and normal Swallowing Difficulty None Pupil description, left Regular Pupil description, right Regular Strength LUE 5-Active movement against gravity & full resistance Strength RUE 5-Active movement against gravity & full resistance Strength LLE 5-Active movement against gravity & full resistance Strength RLE 5-Active movement against gravity & full resistance Tone LUE Normal Tone RUE Normal Tone LLE Normal Tone RLE Normal Sensation LUE Diminished Sensation RUE Intact Sensation LLE Intact Sensation RLE Intact Movement LUE Spontaneous Movement RUE Spontaneous Movement LLE Spontaneous Movement RLE Spontaneous Gait Steady Neuro WNL except Neuro WNL except Eyes and Movements Conjugate gaze: Move in same direction at same speed Memory Intact Swallow - Neuro Normal . Vital Signs : VITAL SIGNS SECTION 10/17/2024 11:00 EST Temperature 98.1 DegF Temperature Route Oral Pulse Rate 56 bpm Respiratory Rate 16 br/min Systolic Blood Pressure 136 mm Hg Diastolic Blood Pressure 71 mm Hg Blood pressure sites Arm, right Pulse Pressure 65 mm Hg Oxygen Saturation 96 % Mode of Delivery (Oxygen) Room air . Evaluation Patient able to make needs known throughout shift. Safety maintained with fall prevention interventions and education. Patient qualifies as a fall risk,, low. Declined falls interventions such as bedor tab alarms. NSR in telemetry, at times HR in the 50's for brief periods. Unremarkable neuro assessments aside from the numbness to his left upper arm, denies dizziness or numbness to face. Does reports some neuropathy to right foot from time to time, none on assessment today. Did have a splinterto right foot, which was removed by at the bedside. Vital signs and details of nursing assessments as indicated above, further in EMR. Discharge paperwork reviewed with patient, who verbalized understanding.. Discharge Information Rehabilitation Discharge : Rehab Discharge Index 10/17/2024 8:19 EST Comments on treatment indicated Pt independent for all mobility Full chart review completed Yes Other findings 74yo M CVA r/o. Pt fully independent no complaints, completed 12x stairs SBA. * Event Display: Progress Note Hospital Authored Date: Consult note * Hina Au MD, [facility]: PERFORM, MODIFY Event Display: Consultation Note Authored Date: [id number] Patient: ??JAYESH SCOTT ? Age:??74 Years?Sex:??Male?:??1950?? Neurology Case Discussion ?? Patient's case was discussed with Dr. Avila??at[facility]emergency room.?? Briefly, 74-year-old male??who presents with??2 days history of??intermittent??left??arm??and left face numbness.?? Reportedly, he had a steroid injection??in his left shoulder??3 days prior to??his sensory symptom s??starting.?? Reported exam with??decreased sensation in the left face and arm??but no??objective focal deficits. ??BP??124/74 upon presentation.?? Per my review, CT head is negative for acute intracranial bleeding or acute infarcts and CTA with no intracranial LVO??or intracranial/extracranial high degree of stenosis.?? Low suspicion for acute stroke given intermittent sensory symptoms for??couple of days??with??normal brain images.?? Patient is not a candidate for acute cerebral reperfusion therapies.?? I recommend to??evaluate for toxic metabolic etiologies, would continue stroke protocolfor now including a swallow evaluation, aspirin load,??telemetry,??brain MRI to rule out the less likely scenario of??stuttering lacunar infarct,??MRI of the cervical spine??to evaluate for??spinal/radicular??etiology. ??If brain MRI shows embolic appearing stroke, then will need transthoracic echocardiogram??and possibly??outpatient ambulatory monitoring. ?? Fernanda Au M.D Attending Vascular Neurology Department of Neurosciences Note * Cecily Lebron RN: PERFORM Event Display: Discharge/Transfer Note Hospital Authored Date: Nursing Discharge Note Entered On: 10/17/2024 14:45 EST Performed On: 10/17/2024 14:45 EST by Cecily Lebron RN Nursing Discharge Note 2 Discharge Time : 10/17/2024 14:40 EST Discharge Level of Care at Discharge : Home/Detention/Foster Care Patient Left Unit Via : Ambulatory Patient Accompanied Off Unit with : Other: self DC Instructions Provided & Signed by Pt : No Patient Understands D/C Instructions : Yes Patient Instructions Discharge Signed : Yes Did Pt have Specialty Bed or Wound Vac : No Cecily Lberon RN - 10/17/2024 14:45 EST * Tushar CHAUDHARI, Julio Roman: PERFORM, MODIFY Event Display: Discharge/Transfer Note Hospital Authored Date: [id number] Patient: ??JAYESH SCOTT ? Age:??74 Years?Sex:??Male?:??1950?? 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 Drink first bottle [address] scan.Drink second bottle [address] scan. BuPROpion (buPROPion 300 mg/24 hours (XL) oral tablet, extended release)??1 tab(s) 300 Milligram ByMouth Daily Cetirizine (ZyrTEC 10 mg oral tablet)??1 tab(s) 10 Milligram By Mouth Daily Cholecalciferol (Vitamin D3 2000 intl units oral capsule)??1 capsule 50 Microgram By Mouth Daily Finasteride (finasteride 5 mg oral tablet)??1 tab(s) 5 Milligram By Mouth Daily Fluoxetine (FLUoxetine 40 mg oral capsule)??1 capsule 40 Milligram By Mouth Daily Fluticasone Nasal (Flonase 50 mcg/inh nasal spray)??2 spray(s) Nares, Both Daily Miscellaneous Rx??Vitamin B Complex Roberts-3 Polyunsaturated Fatty Acids (Fish Oil)??By Mouth Tamsulosin (tamsulosin 0.4 mg oral capsule)??0.4 Milligram 1 capsule By Mouth Daily Trazodone (traZODone 150 mg oral tablet)??1 tab(s) 150 Milligram By Mouth Daily at bedtime Trazodone (traZODone 50 mg oral tablet)??180 each, 0 Refill(s), TAKE 1 OR 2 TABLETS BY MOUTH EVERY EVENING. turmeric??500 Milligram By Mouth Daily Vitamin E??By Mouth Daily Zinc Sulfate (Zinc)??140 Milligram By Mouth Daily ? Medications Started - Medications Discontinued - Doses Changed - Allergies Allergies ?(Active and Proposed Allergies Only) NKA? (Severity: Unknown severity, Onset: Unknown) ? PCP Follow-Up/Heads-Up intermittent left arm and facial numbness, cva workup was negative. likely from degenerative changes in c spine causing foraminal narrowing. Future Appointments Tuesday 10:30 AM EST ?? With: Isamar Garcia [facility]: [facility] Status: Pending Tuesday 8:15 AM EST ?? Where: [facility] [place] [address]- Status: Pending Tuesday 10:30 AM EST ?? With: Jonn Martino Where: [facility] Status: Pending 2024 1:30 PM EST ?? With: Jonn Martino Where: [facility] Status: Pending Objective Assessment and Plan Assessment:??Assessment:??73-year-old male with past medical history of hyperlipidemia, BPH, depression, hypertension, anxiety who presented to ED with left upper extremity and facial numbness. ?? 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 Patient presented with??left upper extremity??numbness??as well as the left facial numbness??although no remarkable physical??exam findings.?He has been having the symptoms intermittently since last??Tuesday, he is OOW for??tPA.?Patient was asymptomatic on my exam,??initial CT head without acute stroke.??CT angio head and neck showed moderate to severe narrowing of the left vertebral artery origin??but no large vessel occlusion. Patient passed bedside swallow eval. He had also recently had a steroid injection in his??left shoulder??and symptoms had started since then No obvious??neck/cervical spine issues that he knows of Patient was loaded with aspirin and??neurology was consulted who recommended??MRI brain as well as cervical spine.??Concern for central process was less likely. MRI brain was done which was negative for any acute stroke, hemorrhage, chronic microangiopathy noted with mild global cerebral volume loss MRI cervical spine did not show any high-grade canal stenosis but did show multilevel foraminal stenosis.??No abnormal signal within the spinal cord He also had ultrasound carotid which showed normal vertebral artery anterograde flow bilaterally, normal left ICA, 1 to 49% stenosis of right ICA No significant arrhythmia on telemetry ?? Discussed with neurology, no further recommendations from there and.??Likely related to steroid injection versus cervical spinal pathology such as above- mentioned degenerative disease causing multilevel foraminal stenosis ?? Patient will need to follow-up with PCP and orthopedics. ?? Plan??? -given no evidence of stroke aspirin was not continued -Patient is not on a statin however LDL is 93 only mildly above goal encouraged lifestyle modification first and repeat lipid panel in 3 months with PCP.??Can consider starting in outpatient setting.Continue with fish oil supplementation. -Follow-up with PCP as well as orthopedics regarding recent steroid injection. -PT evaluation was ordered however patient independent and ambulating independently without any issues hence discharge plan was made ?? BPH (benign prostatic hyperplasia) (N40.0):??Continue tamsulosin and finasteride ?? Depression with anxiety (F41.8):??Patient takes??bupropion,??fluoxetine, trazodone ?? Of note- patient had a small splinter in the sole of his right foot, removed without any??issue??prior to discharge. ?? Vital Signs?? Temperature: 98.1 DegF (10/17/24 11:00:00) Temperature Route: Oral (10/17/24 11:00:00) Pulse Rate: 56 bpm (10/17/24 11:00:00) Respiratory Rate: 16 br/min (10/17/24 11:00:00) Systolic Blood Pressure: 136 mm Hg (10/17/24 11:00:00) Diastolic Blood Pressure: 71 mm Hg (10/17/24 11:00:00) Blood pressure sites: Arm, right (10/17/24 11:00:00) Mean Arterial Pressure: 86 mm Hg (10/16/24 22:55:00) Pulse Pressure: 65 mm Hg (10/17/24 11:00:00) Oxygen Saturation: 96 % (10/17/24 11:00:00) Mode of Delivery (Oxygen): Room air (10/17/24 11:00:00) Early Warning Score: 0 (10/17/24 13:04:30) ? Intake/Output? 10/16 15:45 10/17 07:00 10/16 07:00 10/15 07:00 10/14 07:00 ?? 10/17 13:30 10/17 13:30 10/17 06:59 10/16 06:59 10/15 06:59 Intake ?480 ?480 ?0 ?0 ?0 Output ?0 ?0 ?0 ?0 ?0 Net Total ?480 ?480 ?0 ?0 ?0 ? Urine Count ?2 ?2 ?0 ?0 ?0 ? . Physical Exam Constitutional: Alert, in no acute distress. Respiratory: Clear to auscultation. Cardiovascular: S1S2 regular. Gastrointestinal: Abdomen soft, non-tender, non-distended. Normal bowel sounds. Extremities: No lower extremity pitting??edema Neurologic: AAOx3, Speech normal. Cranial nerve 2-12 grossly normal, strength 5/5 in b/l UE and LE,sensation to crude touch grossly intact. No dysmetria on finger nose testing. Pending Results Add On Lab Order ordered on 10/16/2024 Hold Lavender Top Tube ordered on 10/16/2024 MRI Brain W/O Contrast ordered on 10/16/2024 MRI Cervical Spine W/O Contrast ordered on 10/16/2024 Follow-Up Appointments Added Follow Up ?Time Frame ?Comments Erika CHAUDHARI, William Watson?1 to 2 weeks Patient Instructions Upon discharge we recommend the following:? -We recommend you follow-up with your PCP in 1 to 2 weeks -He you had an MRI brain done which was negative for stroke, he also had MRI??of your neck done??which showed some degree of narrowing however no major canal stenosis.?? This could certainly contribute to??intermittent numbness and tingling in the arm. ?? Would recommend following up with your PCP as well as Orthopedics regarding this.? Your cholesterol levels were borderline elevated hence would recommend to continue with lifestyle modification, physical activity and exercise, and recheck your labs in 3 months and follow-up with PCP to ensure that your lipid levels are stable and improving. Post Discharge Care Discharge ?10/17/24 13:35:00 EST ?Order Comment:?? Discharge Prescriptions ?ePrescribed, 10/17/24 13:35:00 EST ?Order Comment:?? Home Health Face to Face ^HomeHealthFTF Results Discharge Labs BLOOD COUNT & DIFF WBC 6.7 k/mm3 ()?? 10/17/2024 06:39 RBC 4.86 m/mm3 ()?? 10/17/2024 06:39 Hgb 15.8 Gm/dL ()?? 10/17/2024 06:39 Hct 44.0 % ()?? 10/17/2024 06:39 MCV 90.5 femtoliters ()?? 10/17/2024 06:39 MCH 32.5 pg ()?? 10/17/2024 06:39 MCHC 35.9 Gm/dL ()?? 10/17/2024 06:39 Platelet Count 226 k/mm3 ()?? 10/17/2024 06:39 RDW-SD 38.3 femtoliters ()?? 10/17/2024 06:39 MPV 8.7 femtoliters (Low)?? 10/17/2024 06:39 Nucleated RBC (Automated) 0.0 #/100 WBC'S ()?? 10/17/2024 06:39 Abs. NRBC 0.0 k/mm3 ()?? 10/17/2024 06:39 Abs. Neut 5.1 k/mm3 ()?? 10/16/2024 16:03 Abs. Lymph 1.9 k/mm3 ()?? 10/16/2024 16:03 Abs. Stanley 1.0 k/mm3 ()?? 10/16/2024 16:03 Abs. Eo 0.1 k/mm3 ()?? 10/16/2024 16:03 Abs. Baso 0.1 k/mm3 ()?? 10/16/2024 16:03 Neut % 62.1 % ()?? 10/16/2024 16:03 Lymph % 23.1 % ()?? 10/16/2024 16:03 Stanley % 12.1 % (High)?? 10/16/2024 16:03 Eos % 1.6 % ()?? 10/16/2024 16:03 Baso % 0.9 % ()?? 10/16/2024 16:03 Imm Gran 0.2 % ()?? 10/16/2024 16:03 Abs. Imm Gran 0.0 k/mm3 ()?? 10/16/2024 16:03 ?? CARDIAC High Sensitivity Troponin (HSTnT) 12 ng/L ()?? 10/16/2024 16:03 ? CHEM GENERAL Sodium 138 mmol/L ()?? 10/17/2024 06:39 Potassium 4.1 mmol/L ()?? 10/17/2024 06:39 Chloride 104 mmol/L ()?? 10/17/2024 06:39 Bicarbonate Level 24 mmol/L ()?? 10/17/2024 06:39 Anion Gap 10 mmol/L ()?? 10/17/2024 06:39 Glucose Level 104 mg/dL (High)?? 10/17/2024 06:39 Glucose, POC 85 mg/dL ()?? 10/16/2024 16:00 Hemoglobin A1C (Monitoring) 5.4 % ()?? 10/16/2024 16:03 BUN 21 mg/dL ()?? 10/17/2024 06:39 Creatinine-Blood 0.87 mg/dL ()?? 10/17/2024 06:39 Estimated GFR Creatinine 91 ML/MIN/1.73 M2 ()?? 10/17/2024 06:39 Calcium 9.1 mg/dL ()?? 10/17/2024 06:39 Phosphorus 3.5 mg/dL ()?? 10/17/2024 06:39 Magnesium 2.2 mg/dL ()?? 10/17/2024 06:39 Protein, Total 6.2 Gm/dL ()?? 10/17/2024 06:39 Albumin 4.1 Gm/dL ()?? 10/17/2024 06:39 AG Ratio 2.0 ()?? 10/17/2024 06:39 Alkaline Phosphatase 87 units/L ()?? 10/17/2024 06:39 AST (SGOT) 15 units/L ()?? 10/17/2024 06:39 ALT (SGPT) 13 units/L ()?? 10/17/2024 06:39 Bilirubin, Total 0.8 mg/dL ()?? 10/17/2024 06:39 ? HEME OTHER Hold Blue Top SPECIMEN DISCARDED AFTER 4 HOURS. ()?? 10/16/2024 16:03 ? LIPID STUDIES Cholesterol 182 mg/dL ()?? 10/16/2024 16:03 Triglycerides 171 mg/dL (High)?? 10/16/2024 16:03 HDL Cholesterol 55 mg/dL ()?? 10/16/2024 16:03 LDL Cholesterol 93 mg/dL ()?? 10/16/2024 16:03 Non HDL Cholesterol 127 mg/dL ()?? 10/16/2024 16:03 ? MISC. CHEMISTRY Hold Gel Top SPECIMEN DISCARDED AFTER 1 WEEK ()?? 10/16/2024 16:03 Hold Greenwood Top SPECIMEN DISCARDED AFTER 1 WEEK ()?? 10/16/2024 16:03 ?? URINE OTHER Est Creatinine Clearance 83.12 mL/min ()?? 10/17/2024 07:19 ? Blood Glucose Trend Glucose Level:??104 mg/dL??High (10/17/24 06:39:00) Glucose Level: 93 mg/dL (10/16/24 16:03:00) Glucose, POC: 85 mg/dL (10/16/24 16:00:00) ? 45??minutes spent on discharge * Sirisha CHANG, [place]: PERFORM, SIGN, VERIFY Event Display: Case Management Discharge Plan Authored Date: Patient: JAYESH SCOTT Age: 74 years Sex: Male : 1950 Associated Diagnoses: None Author: [place] Grimm RN Discharge Plan Case Management Discharge Plan : Case Management Discharge Plan Data 10/17/2024 12:26 EST Discharge Level of Care at Discharge Home/Detention/Foster Care * Cecily Lebron RN: PERFORM Event Display: Patient Education/Instruction Authored Date: [id number] Inpatient Adult Discharge Instructions. [address] [address] Name: JAYESH SCOTT : 1950?? Visit: 10/16/2024 15:45?? Current Date: 10/17/2024 14:01 ?? Account: [id number]?? Inpatient Adult Discharge Instructions We would like to thank you for allowing us to assist you with your healthcare needs. The following includes patient education materials and information regarding your injury/illness. Our entire staffstrives to provide an excellent experience for our patients and their families. PLEASE ENSURE YOU FOLLOW-UP PER THE INSTRUCTIONS BELOW! ?? YOUR OPINION IS IMPORTANT TO US! Please complete the survey you may receive by mail or email. Your feedback will be used to make improvements to the healthcare experiences of our patients and their families. Surveys are administered by [employer] ?? If further treatment with your primary care physician or another doctor is recommended, it is important for you to keep the appointment. Call your primary care physician or return to the Emergency Department immediately if your condition worsens, fails to improve, or new symptoms develop. If you need to find a doctor, you can call [facility] [employer] Link for a referral at [phone] or toll free at [phone]) or log in to [email or web address].. ?? [facility], in keeping with [facility] guidance, no longer requires face masks for staff, patientsor visitors in most situations. Similiar to time spent indoors at other locations, there is the chance that you were exposed to repiratory viruses during your time with us (such as flu or COVID-19). If you develop symptoms concerning for a viral respiratory infection, please seek testing (and treatment if indicated) from your medical provider or home test kit. ?? You can view and manage your care through the patient portal or by using a health care cary of your choosing. [employer] is a website that allows you to securely view your medical information including your hospital discharge summary, office visit summaries, medications and follow-up visits. You can also request appointments, renew medications, and request access to your medical information using a health care cary of your choosing, or just ask a question. You can enroll at [email or web address] or register during your next office visit. You have been discharged from [facility], Patient Care Unit: Med Surg??. If you have any questions regarding these instructions, including results of studies pending, afteryou leave, please call us and we will be happy to assist you 04/04. [facility] Your Care Team Attending Physician Tushar CHAUDHARI, Julio Roman?? Consulting Providers Julio Finley MD?? Discharging Providers Julio Finley MD Reason for Your Visit left paresthesia?? Your Diagnosis Left facial numbness BPH (benign prostatic hyperplasia) Depression with anxiety Left upper extremity numbness Potential stroke Stenosis of left vertebral artery Tests Performed Below is a partial list of the tests performed during your hospitalization. You may have had other tests and procedures not included in this list. Please discuss all test results with your provider. CBC CBC w/ Differential Comprehensive Metabolic Panel GLUCOSE POC HEMOGLOBIN A1C High Sensitivity Troponin T HOLD BLUE TUBE HOLD GEL TUBE HOLD GREENWOOD TUBE HOLD LAVENDER TUBE?-- Results Pending -- LIPID PANEL Mg Level Phosphorus Level Brain MRI W/O Contrast?-- Results Pending -- Carotid Ultrasound CT Angio Head Hyperacute Stroke CT Angio Neck Hyperacute Stroke CT Head-Hyper Acute Stroke MRI Cervical Spine W/O Contrast?-- Results Pending -- XR Chest 2 Views Frontal and Lat Add On Lab Order?? CBC?? CBC w/ Differential?? CT Angio Head Hyperacute Stroke?? CT Angio Neck Hyperacute Stroke?? CT Head-Hyper Acute Stroke?? Comprehensive Metabolic Panel?? Gel Top Hold Tube (HOLD GEL TUBE)?? Glucose POC?? Hemoglobin A1C (Monitoring) (HEMOGLOBIN A1C)?? High??Sensitivity??Troponin T (High Sensitivity Troponin T)?? Hold Blue Top Tube (HOLD BLUE TUBE)?? Hold Greenwood Top Tube (HOLD GREENWOOD TUBE)?? Hold Lavender Top Tube (HOLD LAVENDER TUBE)?? Lipid Panel?? MRI Brain W/O Contrast (Brain MRI W/O Contrast)?? MRI Cervical Spine W/O Contrast?? Magnesium Level (Mg Level)?? Phosphorus Level?? US Duplex Cranial Ext. Artery BiLat (Carotid Ultrasound)?? Chest 2 Views Frontal and Lat (XR Chest 2 Views Frontal and Lat)?? Primary Care Provider William James MD? Advance Directive Health Care Proxy on File Yes - Health Care Proxy Discharge Vitals Temperature: 98.1 DegF Height: 183 cm Pulse Rate: 56 bpm Weight: 81.7 kg Respiratory Rate: 16 br/min Body Mass Index: 24.4 kg/m2 Systolic Blood Pressure: 136 mm Hg Body surface area: 2.04 Diastolic Blood Pressure: 71 mm Hg ?? Oxygen Saturation: 96 % ?? Studies Pending All studies ordered during this hospital stay have been completed unless listed below. Please discuss all pending results with your provider listed above in these instructions. ?? Add On Lab Order?? Hold Lavender Top Tube (HOLD LAVENDER TUBE)?? MRI Brain W/O Contrast (Brain MRI W/O Contrast)?? MRI Cervical Spine W/O Contrast?? What to do next Instructions From Your Doctor Upon discharge we recommend the following:? -We recommend you follow-up with your PCP in 1 to 2 weeks -He you had an MRI brain done which was negative for stroke, he also had MRI??of your neck done??which showed some degree of narrowing however no major canal stenosis.?? This could certainly contribute to??intermittent numbness and tingling in the arm. ?? Would recommend following up with your PCP as well as Orthopedics regarding this.? Your cholesterol levels were borderline elevated hence would recommend to continue with lifestyle modification, physical activity and exercise, and recheck your labs in 3 months and follow-up with PCP to ensure that your lipid levels are stable and improving. ?? Orders? 10/17/24 13:35:00 EST?? Prescriptions??, ??10/17/24 13:35:00 EST?? Scheduled Follow-Up Appointments Tuesday 10:30 AM EST ?? With: Isamar Garcia Where: [facility] Status: Pending Tuesday 8:15 AM EST ?? Where: [address] [facility] [address] [place] [id number]- Status: Pending Tuesday 10:30 AM EST ?? With: Jonn Martino Where: [facility] Status: Pending 2024 1:30 PM EST ?? With: Jonn Martino Where: [facility] [place] Status: Pending You Need to Schedule the Following Appointments Follow Up with??Erika CHAUDHARI, William Watson When:??Within 1 to 2 weeks Where: [address] [place] [address]- Discharge Medications JAYESH SCOTT :1950 Visit Date:10/16/2024 Medications: Please continue your medications until treatment is completed or stopped by your provider. Medications not listed below should be discontinued. Discuss any questions related to medications with your provider. What How Much When Instructions Next Dose Unchanged Barium Sulfate (barium sulfate 2% oral suspension) See instructions Please dispense 2- 450ml bottles. Drink first bottle [address] scan. Drink second bottle [address] scan. ?? Unchanged BuPROpion (buPROPion 300 mg/ 24 hours (XL) oral tablet, extended release) 1 tab(s) Oral Daily tomorrow morning Unchanged Cetirizine (ZyrTEC 10 mg oral tablet) 1 tab(s) Oral Daily tomorrow morning Unchanged Cholecalciferol (Vitamin D3 2000 intl units oral capsule) 1 capsule Oral Daily tomorrow morning Unchanged Cyanocobalamin (Vitamin B12) tomorrow morning Unchanged Finasteride (finasteride 5 mg oral tablet) 1 tab(s) Oral Daily tomorrow morning Unchanged Fluoxetine (FLUoxetine 40 mg oral capsule) 1 capsule Oral Daily tomorrow morning Unchanged Fluticasone Nasal (Flonase 50 mcg/ inh nasal spray) 2 spray(s) Nares, Both Daily as ordered by outpatient provider. not given inpatient Unchanged Miscellaneous Rx Vitamin B Complex ?? as ordered by outpatient provider. not given inpatient Unchanged Roberts-3 Polyunsaturated Fatty Acids (Fish Oil) Oral as ordered by outpatient provider. not given inpatient Unchanged Tamsulosin (tamsulosin 0.4 mg oral capsule) 1 capsule Oral Daily tomorrow morning Unchanged Trazodone (traZODone 150 mg oral tablet) 1 tab(s) Oral Daily at Bedtime tonight Unchanged Trazodone (traZODone 50 mg oral tablet) 180 each, 0 Refill(s), TAKE 1 OR 2 TABLETS BY MOUTH EVERY EVENING. ?? as ordered by outpatient provider. not given inpatient Unchanged turmeric 500 Milligram Oral Daily as ordered by outpatient provider. not given inpatient Unchanged Vitamin E Oral Daily as ordered by outpatient provider. not given inpatient Unchanged Zinc Sulfate (Zinc) 140 Milligram Oral Daily as ordered by outpatient provider. not given inpatient ?? What How Much When Comments Stop Taking Ascorbic Acid (Vitamin C) Oral Daily Prescription Given During Visit No new medications prescribed at time of discharge.?? Laboratory Results Below is a partial list of the most recent Laboratory test results done prior to this discharge. You may have had other tests and procedures not included in this list. Please discuss all test resultswith your provider. Est Creatinine Clearance - 83.12 mL/min (10/17/2024) CBC (10/17/2024) ???WBC - 6.7 k/mm3???RBC - 4.86 m/mm3???Hgb - 15.8 Gm/dL???Hct - 44.0 %???MCV - 90.5 femtoliters???MCH - 32.5 pg???MCHC - 35.9 Gm/dL???Platelet Count - 226 k/mm3???RDW-SD - 38.3 femtoliters???MPV - 8.7 femtoliters???Nucleated RBC (Automated) - 0.0 #/100 WBC'S???Abs. NRBC - 0.0 k/mm3 CBC w/ Differential (10/16/2024) ???WBC - 8.1 k/mm3???RBC - 5.02 m/mm3???Hgb - 16.6 Gm/dL???Hct - 45.9 %???MCV - 91.4 femtoliters???MCH - 33.1 pg???MCHC - 36.2 Gm/dL???Platelet Count - 278 k/mm3???RDW-SD - 38.6 femtoliters???MPV - 8.7 femtoliters???Nucleated RBC (Automated) - 0.0 #/100 WBC'S???Abs. NRBC - 0.0 k/mm3???Abs. Neut - 5.1 k/mm3???Abs. Lymph - 1.9 k/mm3???Abs. Stanley - 1.0 k/mm3???Abs. Eo - 0.1 k/mm3???Abs. Baso - 0.1 k/mm3???Neut % - 62.1 %???Lymph % - 23.1 %???Stanley % - 12.1 %???Eos % - 1.6 %???Baso % - 0.9 %???Imm Gran - 0.2 %???Abs. Imm Gran - 0.0 k/mm3 Comprehensive Metabolic Panel (10/17/2024) ???Sodium - 138 mmol/L???Potassium - 4.1 mmol/L???Chloride - 104 mmol/L???Bicarbonate Level - 24 mmol/L???Anion Gap - 10 mmol/L???Glucose Level - 104 mg/dL???BUN - 21 mg/dL???Creatinine-Blood - 0.87 mg/dL???Estimated GFR Creatinine - 91 ML/MIN/1.73 M2???Calcium - 9.1 mg/dL???Protein, Total - 6.2 Gm/ dL???Albumin - 4.1 Gm/dL???AG Ratio - 2.0???Alkaline Phosphatase - 87 units/L???AST (SGOT) - 15 units/L???ALT (SGPT) - 13 units/L???Bilirubin, Total - 0.8 mg/dL GLUCOSE POC (10/16/2024) ???Glucose, POC - 85 mg/dL HEMOGLOBIN A1C (10/16/2024) ???Hemoglobin A1C (Monitoring) - 5.4 % High Sensitivity Troponin T (10/16/2024) ???High Sensitivity Troponin (HSTnT) - 12 ng/L HOLD BLUE TUBE (10/16/2024) ???Hold Blue Top - SPECIMEN DISCARDED AFTER 4 HOURS. HOLD GEL TUBE (10/16/2024) ???Hold Gel Top - SPECIMEN DISCARDED AFTER 1 WEEK HOLD GREENWOOD TUBE (10/16/2024) ???Hold Greenwood Top - SPECIMEN DISCARDED AFTER 1 WEEK LIPID PANEL (10/16/2024) ???Cholesterol - 182 mg/dL???Triglycerides - 171 mg/dL???HDL Cholesterol - 55 mg/dL???LDL Cholesterol - 93 mg/dL???Non HDL Cholesterol - 127 mg/dL Mg Level (10/17/2024) ???Magnesium - 2.2 mg/dL Phosphorus Level (10/17/2024) ???Phosphorus - 3.5 mg/dL You will be contacted within 72 hours with your results. Allergies (NKA means No Known Allergies) NKA Problems Active Problems??(16) Allergic rhinitis?? Anxiety?? Bilateral hearing loss?? BPH (benign prostatic hyperplasia)?? Cataract?? Depression?? GERD (gastroesophageal reflux disease)?? H/O colonoscopy?? HTN (hypertension)?? Hyperlipidemia?? Impaired fasting glucose?? Low back pain?? Osteoarthritis?? Overweight?? Pulmonary nodule?? Recovering alcoholic?? Education Materials Below is the list of Educational Leaflet Providered with your Discharge Instructions. Valuables and Belongings I fully understand and agree that [facility] accepts no responsibility for all my personal property including clothing, toilet articles, radios, jewelry, dentures, hearing aids, rings, money, or any other property that is in my possession or is brought to me after admission. I understand certain valuables may be placed in a hospital safe for a short period of time. I understand that the hospital is not liable for loss or damage due to accident, fire, or other natural occurrence while said property is in the safe. I accept full responsibility for any personal property that I keep with me, and will not hold the hospital responsible in case of loss or disappearance. I acknowledge that i have been encouraged to send valuables and belongings home. ?? Review of Valuable and Belonging List: With patient Date for Pt to Sign Valuables/Belongings: 10/17/24 13:42:00 ?? Other Discharge Information ? Case Management Discharge Plan?? Discharge Plan?? Discharge Level of Care at Discharge: Home/Detention/Foster Care ?? Pulmonary Rehab Status?? Pulmonary Rehab Discharge Status?? Respiratory Rate: 16 br/min ? Common Emergency Awareness Tips IS IT A STROKE? Act FAST and Check for these signs: FACE Does the face look uneven? ARM Does one arm drift down? SPEECH Does their speech sound strange? TIME Call at any sign of stroke ?? Heart Attack Signs Chest discomfort: Most heart attacks involve discomfort in the center of the chest and lasts more than a few minutes, or goes away and comes back. It can feel like uncomfortable pressure, squeezing, fullness or pain. Discomfort in upper body: Symptoms can include pain or discomfort in one or both arms, back, neck, jaw or stomach. Shortness of breath: With or without discomfort. Other signs: Breaking out in a cold sweat, nausea, or lightheaded. Remember, MINUTES DO MATTER. If you experience any of these heart attack warning signs, call to get immediate medical attention! ?? Smoking can increase your chances of developing chronic health problems and can cause harmful effects to other family members in your house. If you smoke, you are strongly encouraged to quit. Please call [facility] [employer] Link at [phone] or [phone] ([phone]) or log in to [email or web address] for referrals to smoking cessation programs. ?? 625 Suicide & Crisis Lifeline is available 04/04 if you or someone you know needs to find a reason to keep living. By calling 031 you'll be connected to a skilled, trained counselor at a crisis center in your area. INPATIENT DISCHARGE INSTRUCTIONS SIGNATURE PAGE JAYESH SCOTT Location:[facility] Registration Date and Time:10/16/2024 15:45 EST Primary Care Physician: Erika CHAUDHARI, William Watson, Attending Physician: Tushar CHAUDHARI, Julio Roman, I JAYESH SCOTT, have received the above patient education materials/instructions and have verbalized understanding. If ambulance or transport services are being used I further acknowledge being given a choice of service. ?? If you need to contact me, please call me at this number: . Patient/Property Master Name: Patient/Property Master Signature: Relationship to Patient: Witness Name/Signature: Date: * Cecily Lebron RN: PERFORM Event Display: Patient Education Leaflets Authored Date: [id number] Spinal Stenosis ?? Spinal Stenosis - Video Spinal stenosis is a condition in which the spinal canal narrows and pinches the nerves, resulting in back and leg pain. Spinal stenosis often occurs in older adults, although younger people who are born with a small spinal canal may also develop symptoms. This video explains the condition and whattreatments are recommended. To view the video go to this web address: [email or web address] Or, scan this QR code with your smart phone Last Reviewed Date: 2020 ?? [employer]. All rights reserved. This information is not intended as a substitute for professional medical care. Always follow your healthcare professional's instructions. ?? Patient Care team information Care Team Personnel Name: Stephie Bowden RN Position: [facility] RN Member Role: Primary Care Nurse Name: Mansi Montilla RN Position: [facility] RN Member Role: Primary Care Nurse Name: William James MD Position: [facility] Physician - Primary Care Member Role: PCP Address: [address], [place] [address] Telecom: Care Team Related Persons Name: IFEANYI SCOTT Name: KAYLI SCOTT Insurance Providers Guarantor name: JAYESH SCOTT Health Plan Information #: 1 Payer: MEDICARE PART B OUTPT Member Number: [id number] Policy Number: NA Group Number: NA Health Plan Information #: 2 Payer: FAMILIA PIERRE Member Number: [id number] Policy Number: NA Group Number: NA
[2024-11-26 15:41] VITALS: BMI 25.0
--- NOTE | 2024-11-27 11:54 | P.CONAN_ITS ---
Documented by User: Arabella Rodrigues NP 11/27/24 11:54 HPI - Anesthesia Eval Consult details Narrative: 74yo M for Colonoscopy [facility] Past Medical History Medical History History of irregular heartbeat CKD (chronic kidney disease), stage II Pulmonary nodule Osteoarthritis Low back pain IFG (impaired fasting glucose) HLD (hyperlipidemia) GERD (gastroesophageal reflux disease) Cataract BPH (benign prostatic hyperplasia) Bilateral hearing loss Allergic rhinitis Seasonal allergies Anxiety Depression HTN (hypertension) Surgical History Surgical History Hx of thumb surgery History of bilateral knee replacement History of repair of hiatal hernia Hx of colonoscopy Social History Social History Housing: House Are you a primary child care centre manager to a significant other at home: No Do you presently have visiting nurse or other home services: No Patient Tobacco Use Status: Never used Tobacco Use of substances other than those prescribed or required for medical reasons: No Have you been hit, kicked, punched, or otherwise hurt by someone within the past year? If so, by whom?: No Are you DNR?: No Advance Directives: No Advance Directives Information Provided: Yes Advance Directives on File: No Recently lost weight without trying: No Nutrition Risks: No Nutritional Risk Poor oral hygiene: No Meds Allergies Allergy/AdvReac Type Severity Reaction Status Date / Time No Known Allergies Allergy Verified 05/03/21 15:44 Home Medications ?Medication ?Instructions ?Recorded ?Confirmed ?Last Taken ?Type acetaminophen 325 mg capsule 650 mg PO Q6H PRN Pain 11/26/24 11/26/24 Unknown History bupropion HCl 300 mg 24 hr tablet, 300 mg PO QAM 11/26/24 11/26/24 Unknown History extended release finasteride 5 mg tablet 5 mg PO DAILY 11/26/24 11/26/24 Unknown History tamsulosin 0.4 mg capsule 0.4 mg PO BEDTIME 11/26/24 11/26/24 Unknown History trazodone 50 mg tablet 50 - 100 mg PO QPM 11/26/24 11/26/24 Unknown History Exam Height,Weight and Vital Signs: Height 6 ft Weight 83.461 kg Assessment and Plan Assessment Anesthesia Assessment: Chart Reviewed Documented by User: Merline Esqueda MD 11/28/24 12:09 PMF Active Problems Active Problems: HTN Anxiety/Depression GERD H/o ETOH abuse. Not recently H/o irregular heart while drinking Denies ALEJANDRA Past Medical History Medical History History of irregular heartbeat CKD (chronic kidney disease), stage II Pulmonary nodule Osteoarthritis Low back pain IFG (impaired fasting glucose) HLD (hyperlipidemia) GERD (gastroesophageal reflux disease) Cataract BPH (benign prostatic hyperplasia) Bilateral hearing loss Allergic rhinitis Seasonal allergies Anxiety Depression HTN (hypertension) Family History Family history of problems with anesthesia: No Surgical History Surgical History Hx of thumb surgery History of bilateral knee replacement History of repair of hiatal hernia Hx of colonoscopy History of Problems with Anesthesia: No Social History Social History Housing: House Are you a primary child care centre manager to a significant other at home: No Do you presently have visiting nurse or other home services: No Patient Tobacco Use Status: Never used Tobacco Use of substances other than those prescribed or required for medical reasons: No Have you been hit, kicked, punched, or otherwise hurt by someone within the past year? If so, by whom?: No Are you DNR?: No Advance Directives: No Advance Directives Information Provided: Yes Advance Directives on File: No Recently lost weight without trying: No Nutrition Risks: No Nutritional Risk Poor oral hygiene: No Meds Allergies Allergy/AdvReac Type Severity Reaction Status Date / Time No Known Allergies Allergy Verified 05/03/21 15:44 Home Medications ?Medication ?Instructions ?Recorded ?Confirmed ?Last Taken ?Type acetaminophen 325 mg capsule 650 mg PO Q6H PRN Pain 11/26/24 11/26/24 Unknown History bupropion HCl 300 mg 24 hr tablet, 300 mg PO QAM 11/26/24 11/26/24 Unknown History extended release finasteride 5 mg tablet 5 mg PO DAILY 11/26/24 11/26/24 Unknown History tamsulosin 0.4 mg capsule 0.4 mg PO BEDTIME 11/26/24 11/26/24 Unknown History trazodone 50 mg tablet 50 - 100 mg PO QPM 11/26/24 11/26/24 Unknown History Exam Height,Weight and Vital Signs: Height 6 ft Weight 83.461 kg Vital Signs Temp Pulse Resp BP Pulse Ox O2 Del Method 11/28/24 10:45 97.6 F 62 20 119/73 97 Room Air Airway Mallampati Class: III TM Dist: >3cm Neck ROM: Full Loose/Missing/Broken Teeth: Yes (Missing wisdom teeth. Denies broken or loose teeth) Heart: RRR Lungs: CTAB Assessment and Plan Assessment Anesthesia Assessment: Anesthesia Plan Discussed and Chart Reviewed Final Anesthetic Review Family History of Problems with Anesthesia: No History of Problems with Anesthesia: No NPO: Yes ASA Class: III Final Preanesthetic Review: No Changes in Pt Med Stat, Meds/Allgs Chart Reviewed, Consent Obtained/Reviewed and Anes Risks/Benef Reviewed Patient Risk: Intermediate Procedure Risk: Low Assessment/Block/Sedation in SS: Assess/Block/Sedation-SS Anesthetic Plan Anesthetic Plan: TIVA Disposition: Standard PACU
[2024-11-28 10:30] VITALS: BMI 24.5
[2024-11-28 10:45] VITALS: BP 119/73; PULSE 62; RESP 20; TEMP 36.4; O2SAT 97
[2024-11-28] MEDS: Lactated Ringers 1,000 ML 100 ML IVCONT (10:55)
[2024-11-28 12:33] VITALS: BP 88/50; PULSE 48; RESP 16; TEMP 37.2; O2SAT 96
--- NOTE | 2024-11-28 12:33 | P.BOP_ITS ---
Brief Operative Note Date of Service: 11/28/24 Pre-op diagnosis: Screening Post-op diagnosis: other (Colon polyps) Procedure: Colonoscopy to the cecum and TI with cold snare polypectomy x 2, but the polyp at 40cm was not recovered Surgeon: Hieu Manzanares MD Anesthesia: MAC Was an Automatic Spinning Lathe Operator used for this Procedure?: No Estimated blood loss (mL): 2.0 Pathology: other (A. Transverse colon polyp) Condition: stable Disposition: PACU
[2024-11-28 12:48] VITALS: BP 133/67; PULSE 48; RESP 16; TEMP 37.2; O2SAT 96
--- NOTE | 2024-11-28 13:34 | OP_ITS ---
DATE OF SERVICE: 11/28/2024 SURGEON: Hieu Manzanares MD INDICATIONS: The patient presents for evaluation of previous change in bowel habits, and colorectal cancer screening. Full consent has been obtained from him for this, including risks of bleeding and perforation. PREOPERATIVE DIAGNOSIS: POSTOPERATIVE DIAGNOSIS: Change in bowel habits and colorectal cancer screening, colon polyps, sigmoid diverticulosis, and internal hemorrhoids. PROCEDURE PERFORMED: Colonoscopy to the cecum and terminal ileum with cold snare polypectomy x2. ESTIMATED BLOOD LOSS: COMPLICATIONS: ANESTHESIA: Medication used, monitored anesthesia care. ASSISTANTS: SPECIMENS: PREOPERATIVE DIAGNOSES: Change in bowel habits and colorectal cancer screening. DESCRIPTION OF PROCEDURE: The patient was placed in the left lateral decubitus position. The digital rectal exam revealed no abnormalities. The Olympus video pediatric colonoscope was entered into the rectum and advanced easily to the cecum. Once in the cecum, I did identify normal-appearing cecal pouch with appendiceal orifice and a normal-appearing ileocecal valve. The terminal ileum was cannulated and appeared normal. The scope was withdrawn back in the colon. The entire cecum and ileocecal valve appeared normal. The scope was slowly withdrawn assessing all mucosal surfaces carefully. Preparation was excellent. In the proximal transverse colon was a flat, but raised approximately 6 mm polyp, which was removed by cold snare polypectomy and recovered by suction. The polypectomy site appeared clean, without any sign of residual polyp nor significant bleeding. At 40 cm, was an approximately 6 mm raised polyp, which was removed by cold snare polypectomy but not recovered. The polypectomy site appeared clean, without any sign of residual polyp nor significant bleeding. I did not visualize any other polyps, colitis, nor angiodysplasia. There was a mild amount of sigmoid diverticulosis. In the rectum, scope was retroflexed visualizing internal hemorrhoids, but no other pathology. The rectal mucosa appeared normal. The scope was straightened and withdrawn from the patient. He tolerated the procedure well and was returned to the recovery area in stable condition. IMPRESSION: 1. Colon polyps. 2. Diverticulosis. 3. Internal hemorrhoids. PLAN: The results of the pathology will be checked. I would recommend a repeat colonoscopy in 5 years for further screening purposes as long as he remains well from a clinical standpoint. He was advised not to use any aspirin and NSAIDs for 1 week. He will otherwise see me on a p.r.n. basis. That has been discussed with his . MD RICHARD Flores/ALESSIO / [phone]
== END | disposition home or self-care (01) ==
PROVIDERS: PCP Internal Medicine; Visit Provider Internal Medicine
PROC: 0DJD8ZZ Inspection of Lower Intestinal Tract, Via Natural or Artificial Opening Endoscopic (ICD-10-PCS; CPT 45378; principal; 2024-11-28 10:40)
DX: Z12.11 Encounter for screening for malignant neoplasm of colon (principal); D12.3 Benign neoplasm of transverse colon; K57.30 Diverticulosis of large intestine without perforation or abscess without bleeding; K64.8 Other hemorrhoids; I12.9 Hypertensive chronic kidney disease with stage 1 through stage 4 chronic kidney disease, or unspecified chronic kidney disease; N18.2 Chronic kidney disease, stage 2 (mild); E78.5 Hyperlipidemia, unspecified; Z79.899 Other long term (current) drug therapy
CPT/HCPCS: 45385; 88305; J2003; J2704

== ENCOUNTER 2025-02-13 15:54 | Outpatient (REF) | payer MEDICARE, OTHER, SELFPAY ==
--- OUTSIDE RECORDS SUMMARY | 2025-02-13 15:58 | XMS_ITS | Patient Health Record ---
Author Organization 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 Name Role Phone Erika CHAUDHARI, Wililam Primary Care Provider Unavailab Hieu Spencer Unavailable [phone] Allergies No Known Allergies Results Component Value Reference Range Notes Pathology Reviewed date:01/29/2025 09:27:25 AM Interpretation: Performing Lab:[facility], [address] [place] [id number] Notes/Report: Name: Jayesh Hernadez ge/Sex: 74/M : 1950 Unit#: [id number] Attend Dr: Hieu Manzanares MD Re11/28/24 Status : [facility] Location: [facility] Disch: SPEC : [id number] RECD : 11/28/24-1245 STATUS: MARIA DE JESUS ALEX NUM: [id number] MARIA L: 11/28/24-12[address] [facility] [address]: Hieu Manzanares MD ENTERED: 11/28/24-12 50 SP TYPE: Surgical OTHR DR: WILLIAM REID MD ORDERED: HE Stain/3, Gross Micro L4 Diagnosis Colon, transverse, p olyp: Tubular adenoma; negative for high-grade dysplasia and carcinoma. Clinical History Pre-Op Dx: Screening Post-Op Dx: Colon po lyps, diverticulosis, hemorrhoids Microscopic Description Microscopic sections reviewed. Material Received Transverse colon polyp Gross Description Received in formalin labeled ?transverse colon polyp? are 2 harrell-pink irregular tissue fragments measuring 0.2 and 0.35 cm, submitted in toto in a cassette labeled A. CEDS Copies To: WILLIAM REID MD [facility] [address] [place] [address] [address] [place], [place] [id number] Hieu Manzanares MD [facility] [address] [place] [address] [address] [place], [place] [id number] Signed (si gnature on file) Serina Russell 11/29/24 1158 END OF REPORT Reason For Referral No Information Medications Medication SIG (Take, Route, Frequency, Duration) Notes [...] HCl 50 MG Oral for 90 Active Social History Alcohol Screen Question Answer Notes Did you have a drink containing alcohol in the p ast year? No Points 0 Interpretation Negative Section Notes: Nonsmoker; 3 glasses of wine QD Nonsmoker; 3 glasses of wine QD but no alcohol in 2023 Problems Problem Type SNOMED Code ICD Code Onset Dates Problem Status W/U Status Risk Notes Problem Colon cancer screening (643876097) Colon cancer screening (Z12.11) Active confirmed Problem 716023055 Encounter for screening for malignant neoplasm of colon (Z12.11) Active confirmed Problem Diarrhea (R19.7) Active confirmed Problem Pre-procedure evaluation check (995883641) Encounter for other preprocedural examination (Z01.818) Active confirmed Problem Change in bowel habit (27186947) Change in bowel habits (R19.4) Active confirmed Problem Screening for malignant neoplasm of rectum (851540245) Encounter for screening for malignant neoplasm of rectum (Z12.12) Active confirmed Problem 61579582 Preprocedural examination (Z01.818) Active confirmed Problem 640221534 Long-term use of aspirin therapy (Z79.82) Active confirmed Vital Signs Blood pressure diastolic 00 mm Hg 08/14/2024 Height 72 in 08/14/2024 Blood pressure systolic 00 mm Hg 08/14/2024 Weight 184 lbs 08/14/2024 BMI 24.95 kg/m2 08/14/2024 Encounters Encounter Location Date Provider Diagnosis [facility] [address] [place], [place] [id number] 11/28/2024 Hieu Manzanares Colon cancer screeni ng Z12.11 ; Colon polyps K63.5 ; Diverticulosis of large intestine without perforation or abscess without bleeding K57.30 and Other hemorrhoids K64.8 [facility] [address] [facility] [address] [place] [address] 08/14/2024 Hieu Manzanares Change in bowel habi ts R19.4 ; Colon cancer screening Z12.11 and Encounter for other preprocedural examination Z01.818 [facility] [address] [place] [address] 01/28/2025 Hieu Manzanares Diarrhea R19.7 [facility] [address] [place] [address] 02/06/2025 Hieu Manzanares Diarrhea R19.7 Assessments Encounter Date Diagnosis (ICD Code) Assessment Notes Treatment Notes Treatment Clinical Notes Section Notes 11/28/2024 Colon cancer screening (ICD-10 - Z12.11) 11/28/2024 Colon polyps (ICD-10 - K63.5) 08/14/2024 Colon cancer screening (ICD-10 - Z12.11) Overall, Jayesh appears quite well at the present time. He seems to be back to his baseline from a GI standpoint and his previous GI complaints that he was having earlier in the year appear to have resolved spontaneously. His described workup including a CT scan and ultrasound of the abdomen was reportedly negative, as was an evaluation by the surgeon Dr. Mcdonnell. He is presently not having any ongoing worrisome GI complaints to suggest any ongoing problems such as inflammatory bowel disease, peptic ulcer disease, or GI neoplasm. We did review that his previous symptoms may have reflected something such as an underlying nonspecific gastroenteritis with a slow resolution. At this point I would not recommend any further workup or treatment for the previous symptoms. I recommended that he continue to observe things in that regard and to let me know if things were to relapse. We did discuss colorectal cancer screening today. His last screening colonoscopy was negative over 8 years ago. While he is not at the 10 year interval as yet in regard to screening colonoscopies, he would be inclined to undergo a colonoscopy for evaluation of his previous symptoms as well as to get the next screening colonoscopy out of the way sooner rather than later . I advised him that we could schedule a screening colonoscopy for him sometime in to the new year and by the time we perform the procedure it'll be more than 8 1/2 years since the previous exam. We did review the rationale for this regard to colorectal cancer prevention and/or early detection. Full consent has been obtained for this, including risks of bleeding and perforation. The procedure will be done with monitored anesthesia care. Jayesh was comfortable with this plan. Thank you again for allowing me to participate in Jayesh's care. I shall continue to keep you advised of his progress. 08/14/2024 Change in bowel habits (ICD-10 - R19.4) Overall, Jayesh appears quite well at the present time. He seems to be back to his baseline from a GI standpoint and his previous GI complaints that he was having earlier in the year appear to have resolved spontaneously. His described workup including a CT scan and ultrasound of the abdomen was reportedly negative, as was an evaluation by the surgeon Dr. Mcdonnell. He is presently not having any ongoing worrisome GI complaints to suggest any ongoing problems such as inflammatory bowel disease, peptic ulcer disease, or GI neoplasm. We did review that his previous symptoms may have reflected something such as an underlying nonspecific gastroenteritis with a slow resolution. At this point I would not recommend any further workup or treatment for the previous symptoms. I recommended that he continue to observe things in that regard and to let me know if things were to relapse. We did discuss colorectal cancer screening today. His last screening colonoscopy was negative over 8 years ago. While he is not at the 10 year interval as yet in regard to screening colonoscopies, he would be inclined to undergo a colonoscopy for evaluation of his previous symptoms as well as to get the next screening colonoscopy out of the way sooner rather than later . I advised him that we could schedule a screening colonoscopy for him sometime in to the new year and by the time we perform the procedure it'll be more than 8 1/2 years since the previous exam. We did review the rationale for this regard to colorectal cancer prevention and/or early detection. Full consent has been obtained for this, including risks of bleeding and perforation. The procedure will be done with monitored anesthesia care. Jayesh was comfortable with this plan. Thank you again for allowing me to participate in Jayesh's care. I shall continue to keep you advised of his progress. 01/28/2025 Diarrhea (ICD-10 - R19.7) 02/06/2025 Diarrhea (ICD-10 - R19.7) 11/28/2024 Diverticulosis of large intestine without perforation or abscess without bleeding (ICD-10 - K57.30) 08/14/2024 Encounter for other preprocedural examination (ICD-10 - Z01.818) Overall, Jayesh appears quite well at the present time. He seems to be back to his baseline from a GI standpoint and his previous GI complaints that he was having earlier in the year appear to have resolved spontaneously. His described workup including a CT scan and ultrasound of the abdomen was reportedly negative, as was an evaluation by the surgeon Dr. Mcdonnell. He is presently not having any ongoing worrisome GI complaints to suggest any ongoing problems such as inflammatory bowel disease, peptic ulcer disease, or GI neoplasm. We did review that his previous symptoms may have reflected something such as an underlying nonspecific gastroenteritis with a slow resolution. At this point I would not recommend any further workup or treatment for the previous symptoms. I recommended that he continue to observe things in that regard and to let me know if things were to relapse. We did discuss colorectal cancer screening today. His last screening colonoscopy was negative over 8 years ago. While he is not at the 10 year interval as yet in regard to screening colonoscopies, he would be inclined to undergo a colonoscopy for evaluation of his previous symptoms as well as to get the next screening colonoscopy out of the way sooner rather than later . I advised him that we could schedule a screening colonoscopy for him sometime in to the new year and by the time we perform the procedure it'll be more than 8 1/2 years since the previous exam. We did review the rationale for this regard to colorectal cancer prevention and/or early detection. Full consent has been obtained for this, including risks of bleeding and perforation. The procedure will be done with monitored anesthesia care. Jayesh was comfortable with this plan. Thank you again for allowing me to participate in Jayesh's care. I shall continue to keep you advised of his progress. 11/28/2024 Other hemorrhoids (ICD-10 - K64.8) Plan Of Treatment Pending Test Test Name Order Date CHEM 7 PROFILE 02/06/2025 LIVER PROFILE 02/06/2025 CRP 02/06/2025 CBC w DIFF 02/06/2025 SED RATE (ESR) 02/06/2025 STOOL WBC 01/28/2025 C DIFFICILE RFLX PCR 01/28/2025 Giardia Ag Stool EIA 01/28/2025 GI PANEL 01/28/2025 Celiac Disease Panel 02/06/2025 Future Test Test Name Order Date COLONOSCOPY 01/13/2016 COLONOSCOPY 08/14/2024 Insurance Providers Payer Name Payer Address Payer Phone Subscriber Number Group Number Insured Name Patient Relationship to Insured Coverage Start Date Coverage End Date MEDICARE OF [place] [address] [place] [address] [id number] JAYESH HERNADEZ Self - patient is the insured [employer] [address] [place] [id number] JAYESH HERNADEZ Self - patient is the insured Medical (General) History Medical History History ICD Code Colonoscopy 11-06-2002--WNL Depression Anxiety Denies RI,DM,CVA,Lung disease,renal dise ase Hypertension Seasonal allegeries Negative screening colonoscopy in 03/2016 Surgical History Surgery Date(Month/Year) Hiatal hernia surgery--1979 Both knee replacements--2005 and 2006 Both thumbs/arthritis surgery
[2025-02-13 16:12] LABS: MANUAL DIFF FLAG NO
[2025-02-13 17:15] LABS: Basophils Absolute Auto 0.1 X10*3/uL (0.0-0.2); Eosinophils Absolute Auto 0.2 X10*3/uL (0.0-0.4); Hematocrit 41.2 % (42.0-52.0); Hemoglobin 14.9 g/dl (14.0-18.0); Imm Gran Abs Auto 0.01 X10*3/uL (0.00-0.03); Imm Gran Pct Auto 0.2 % (0.0-0.4); Lymphocytes Absolute Auto 1.6 X10*3/uL (1.2-4.9); Lymphocytes Percent Auto 25.4 % (20-40); Mean Corpuscular HGB Conc 36.2 g/dl (31.0-36.0); Mean Corpuscular Volume 91.4 fL (80.0-98.0); Mean Platelet Volume 9.2 fL (9.4-12.4); Monocytes Absolute Auto 0.9 X10*3/uL (0.1-1.2); Monocytes Percent Auto 13.5 % (2-11); Neutrophils Absolute Auto 3.6 x10*3/uL (2.0-8.3); Neutrophils Percent Auto 56.9 % (45-73); Platelet Count 243 X10*3/uL (160-400); Red Blood Count 4.51 X10*6/uL (4.60-5.80); Red Cell Distribution Width 11.6 % (11.0-16.0); White Blood Count 6.3 X10*3/uL (4.8-10.8)
[2025-02-13 17:33] LABS: Alanine Aminotransferase 26 U/L (0-40); Albumin Level 4.4 g/dL (3.5-5.0); Alkaline Phosphatase 83 U/L (39-117); Anion Gap 10 (12-20); Aspartate Amino Transferase 29 U/L (5-37); Bilirubin Direct 0.1 mg/dL (0.0-0.5); Bilirubin Total 0.5 mg/dL (0.0-1.0); Blood Urea Nitrogen 16 mg/dL (9-16); C Reactive Protein 0.12 mg/dL (< or = 0.50); Calcium 8.8 mg/dL (8.4-10.2); Carbon Dioxide 25 mmol/L (22-29); Chloride 111 mmol/L (96-108); Estimated Glomerular Filt Rate > 60; Glucose Random 87 mg/dL (60-115); Potassium 3.4 mmol/L (3.3-5.1); Sodium 143 mmol/L (135-145); Total Protein 6.7 g/dL (6.5-8.0)
[2025-02-13 17:46] LABS: Erythrocyte Sedimentation Rate 2 MM/HR (0-15)
[2025-02-14 21:04] LABS: Immunoglobulin A 144 mg/dL (70-320); Transglutaminase IgA <1.0 U/mL
== END 2025-02-13 15:55 | disposition home or self-care (01) ==
LOC: HO.LAB 15:54
PROVIDERS: PCP Internal Medicine; Visit Provider Internal Medicine
DX: R19.7 Diarrhea, unspecified (principal)
CPT/HCPCS: 36415; 80053; 82248; 82784; 85025; 85652; 86140; 86364